=== PATIENT | male | born 1975 | race Two or more races ===

== ENCOUNTER 2020-02-07 06:12 | Outpatient (REF) | payer MEDICARE, MEDICAID, SELFPAY ==
[2020-02-07 11:08] LABS: MANUAL DIFF FLAG NO
[2020-02-07 11:21] LABS: Basophils Absolute Auto 0.1 X10*3/uL (0.0-0.2); Basophils Percent Auto 0.7 % (0-2); Eosinophils Absolute Auto 0.5 X10*3/uL (0.0-0.4); Eosinophils Percent Auto 6.7 % (0-4); Hemoglobin 15.1 g/dl (14.0-18.0); Imm Gran Abs Auto 0.01 X10*3/uL (0.00-0.03); Imm Gran Pct Auto 0.1 % (0.0-0.4); Lymphocytes Absolute Auto 3.3 X10*3/uL (1.2-4.9); Lymphocytes Percent Auto 46.9 % (20-40); Mean Corpuscular HGB Conc 33.6 g/dl (31.0-36.0); Mean Corpuscular Hemoglobin 29.5 pg (27.0-33.0); Mean Corpuscular Volume 88.1 fL (80-98); Mean Platelet Volume 13.2 fL (9.4-12.4); Monocytes Absolute Auto 0.7 X10*3/uL (0.1-1.2); Monocytes Percent Auto 9.5 % (2-11); Neutrophils Absolute Auto 2.5 X10*3/uL (2.0-8.3); Neutrophils Percent Auto 36.1 % (45-73); Platelet Count 154 X10*3/uL (160-400); Red Blood Count 5.11 X10*6/uL (4.60-5.80)
[2020-02-07 11:45] LABS: Anion Gap 13 (12-20); Blood Urea Nitrogen 14 mg/dL (9-16); Calcium 8.6 mg/dL (8.4-10.2); Carbon Dioxide 27 mmol/L (22-29); Chloride 105 mmol/L (96-108); Cholesterol 190 mg/dL; Estimated Glomerular Filt Rate > 60; Glucose Fasting 98 mg/dL (60-99); HDL Cholesterol 38 mg/dL; LDL Cholesterol Calculated 132 mg/dl; Potassium 4.3 mmol/l (3.3-5.1); Sodium 141 mmol/L (135-145); Triglycerides 100 mg/dL
[2020-02-07 11:58] LABS: Ferritin 390 ng/mL (20-250)
== END 2020-02-07 06:13 | disposition home or self-care (01) ==
LOC: HO.HMGCLDS 06:12
PROVIDERS: PCP Internal Medicine; Visit Provider Internal Medicine
DX: K21.9 Gastro-esophageal reflux disease without esophagitis (principal); I10 Essential (primary) hypertension; G47.9 Sleep disorder, unspecified; F41.1 Generalized anxiety disorder; R79.89 Other specified abnormal findings of blood chemistry
CPT/HCPCS: 36415; 80048; 80061; 82728; 85025

== ENCOUNTER 2020-09-08 08:07 | Outpatient (REF) | payer OTHER, MEDICARE, MEDICAID, SELFPAY | END 2020-09-08 08:08 | disposition home or self-care (01) | LOC: HO.HOSX 08:07 | PROVIDERS: Visit Provider Physician Assistant | DX: Z13.89 Encounter for screening for other disorder (principal) ==

== ENCOUNTER 2020-11-14 12:35 | Outpatient (REF) | payer OTHER, SELFPAY ==
[2020-11-14 13:44] LABS: Alanine Aminotransferase 53 U/L (0-40); Albumin Level 4.2 g/dL (3.5-5.0); Alkaline Phosphatase 62 U/L (39-117); Anion Gap 12 (12-20); Aspartate Amino Transferase 44 U/L (5-37); Bilirubin Total 1.1 mg/dL (0.0-1.0); Blood Urea Nitrogen 15 mg/dL (9-16); Calcium 9.3 mg/dL (8.4-10.2); Carbon Dioxide 24 mmol/L (22-29); Chloride 107 mmol/L (96-108); Estimated Glomerular Filt Rate > 60; Glucose Random 98 mg/dL (60-115); Potassium 4.2 mmol/L (3.3-5.1); Sodium 139 mmol/L (135-145); Total Protein 7.6 g/dL (6.5-8.0)
[2020-11-14 14:05] LABS: Ferritin 365 ng/mL (20-250)
== END 2020-11-14 12:36 | disposition home or self-care (01) ==
LOC: HO.HMGCLDS 12:35
PROVIDERS: PCP Internal Medicine; Visit Provider Internal Medicine
DX: Z00.00 Encounter for general adult medical examination without abnormal findings (principal); G47.9 Sleep disorder, unspecified; F41.1 Generalized anxiety disorder; I10 Essential (primary) hypertension; K21.9 Gastro-esophageal reflux disease without esophagitis; R79.89 Other specified abnormal findings of blood chemistry
CPT/HCPCS: 36415; 80053; 82728

== ENCOUNTER 2020-12-16 09:04 | Outpatient (REF) | payer OTHER, SELFPAY ==
--- NOTE | ~2020-12-16 | US_ITS ---
EXAMINATION: US ABDOMEN COMPLETE CLINICAL INFORMATION: Thrombocytopenia. Elevated liver function tests. COMPARISON: None TECHNIQUE: Real-time imaging of the abdominal viscera. FINDINGS: PANCREAS: Normal. ABDOMINAL AORTA: The proximal, mid, and distal segments are normal in caliber. INFERIOR VENA CAVA: Visualized portions are normal. LIVER: Mild hepatomegaly. The liver contour is normal. Increased hepatic parenchymal echogenicity. Focal fatty sparing adjacent to the gallbladder. No focal hepatic lesion. There is no intrahepatic biliary duct dilatation seen. GALLBLADDER: Normal. The gallbladder is physiologically distended without evidence of stones, sludge, polyps, wall thickening or pericholecystic fluid. COMMON BILE DUCT: Normal in caliber measuring 0.5 cm in diameter. RIGHT KIDNEY: Upper pole, ovoid echogenic focus measuring up to 1.2 x 0.8 x 1.3 cm with increased through transmission, likely representing an angiomyolipoma. No hydronephrosis or renal calculi. The kidney measures 12.0 cm in maximum dimension. LEFT KIDNEY: Normal. No hydronephrosis. No renal calculi or focal parenchymal lesions. The kidney measures 11.4 cm in maximum dimension. SPLEEN: Normal. The spleen measures 11.1 cm in maximum dimension. FREE FLUID: None. US/US abdomen complete IMPRESSION: 1. Mild hepatomegaly. Hepatic steatosis. Focal fatty sparing adjacent to the gallbladder fossa. 2. 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
== END 2020-12-16 09:05 | disposition home or self-care (01) ==
LOC: HO.HMGCX 09:04
PROVIDERS: PCP Internal Medicine; Visit Provider Internal Medicine
DX: D69.6 Thrombocytopenia, unspecified (principal); R79.89 Other specified abnormal findings of blood chemistry
CPT/HCPCS: 76700

== ENCOUNTER 2021-02-11 10:01 | Outpatient (REF) | payer OTHER, SELFPAY | END 2021-02-11 10:02 | disposition home or self-care (01) | LOC: HO.BBR 10:01 | PROVIDERS: Visit Provider Internal Medicine Medical Oncology | DX: R79.89 Other specified abnormal findings of blood chemistry (principal) | CPT/HCPCS: 85014; 85018; 99195 ==

== ENCOUNTER 2021-05-17 07:57 | Outpatient (REF) | payer OTHER, SELFPAY ==
[2021-05-17 09:00] LABS: Ferritin 142 ng/mL (20-250)
== END 2021-05-17 07:58 | disposition home or self-care (01) ==
LOC: HO.BBR 07:57
PROVIDERS: Visit Provider Internal Medicine
DX: E83.110 Hereditary hemochromatosis (principal)
CPT/HCPCS: 36415; 82728; 85014; 85018; 99195

== ENCOUNTER 2021-09-02 08:06 | Outpatient (REF) | payer OTHER, SELFPAY ==
[2021-09-02 09:53] LABS: Ferritin 144 ng/mL (20-250)
== END 2021-09-02 08:07 | disposition home or self-care (01) ==
LOC: HO.BBR 08:06
PROVIDERS: Visit Provider Internal Medicine
DX: E83.110 Hereditary hemochromatosis (principal); E83.19 Other disorders of iron metabolism
CPT/HCPCS: 36415; 82728; 85018; 99195

== ENCOUNTER 2022-04-30 10:55 | Outpatient (REF) | payer OTHER, SELFPAY ==
[2022-04-30 13:17] LABS: MANUAL DIFF FLAG NO
[2022-04-30 13:23] LABS: Basophils Percent Auto 0.7 % (0-2); Eosinophils Absolute Auto 0.4 X10*3/uL (0.0-0.4); Eosinophils Percent Auto 6.5 % (0-4); Hematocrit 46.2 % (42.0-52.0); Hemoglobin 15.4 g/dl (14.0-18.0); Imm Gran Abs Auto 0.01 X10*3/uL (0.00-0.03); Imm Gran Pct Auto 0.2 % (0.0-0.4); Lymphocytes Absolute Auto 2.5 X10*3/uL (1.2-4.9); Lymphocytes Percent Auto 45.2 % (20-40); Mean Corpuscular HGB Conc 33.3 g/dl (31.0-36.0); Mean Corpuscular Hemoglobin 28.1 pg (27.0-33.0); Mean Corpuscular Volume 84.2 fL (80.0-98.0); Mean Platelet Volume 12.1 fL (9.4-12.4); Monocytes Absolute Auto 0.5 X10*3/uL (0.1-1.2); Monocytes Percent Auto 9.8 % (2-11); Neutrophils Absolute Auto 2.1 x10*3/uL (2.0-8.3); Neutrophils Percent Auto 37.6 % (45-73); Platelet Count 196 X10*3/uL (160-400); Red Blood Count 5.49 X10*6/uL (4.60-5.80); Red Cell Distribution Width 13.6 % (11.0-16.0); White Blood Count 5.5 X10*3/uL (4.8-10.8)
[2022-04-30 13:34] LABS: Alanine Aminotransferase 38 U/L (0-40); Albumin Level 4.1 g/dL (3.5-5.0); Alkaline Phosphatase 62 U/L (39-117); Anion Gap 12 (12-20); Aspartate Amino Transferase 28 U/L (5-37); Bilirubin Total 0.8 mg/dL (0.0-1.0); Blood Urea Nitrogen 16 mg/dL (9-16); Calcium 9.1 mg/dL (8.4-10.2); Carbon Dioxide 24 mmol/L (22-29); Chloride 107 mmol/L (96-108); Estimated Glomerular Filt Rate > 60; Glucose Random 96 mg/dL (60-115); Sodium 139 mmol/L (135-145); Total Protein 7.2 g/dL (6.5-8.0)
[2022-05-02 08:43] LABS: LDL Cholesterol Direct 147 mg/dL (<100)
== END 2022-04-30 10:56 | disposition home or self-care (01) ==
LOC: HO.HMGCLDS 10:55
PROVIDERS: PCP Internal Medicine; Visit Provider Internal Medicine
DX: F41.1 Generalized anxiety disorder (principal); G47.9 Sleep disorder, unspecified; K21.9 Gastro-esophageal reflux disease without esophagitis; I10 Essential (primary) hypertension
CPT/HCPCS: 36415; 80053; 83721; 85025

== ENCOUNTER 2023-01-27 15:40 | Outpatient (AMB) | payer OTHER, SELFPAY ==
--- NOTE | 2023-01-27 15:42 | MHC.PC.OV ---
Vital Signs 01/27/23 15:47 Height 6 ft 2 in Weight 237 lb 4 oz BMI 30.5 BP 140/92 H Blood Pressure Location Lt brachial Position Sitting Pulse 82 Pulse Source Pulse Oximeter Pulse Oximetry (%) 96 Oxygen Delivery Method Room Air Intake Visit Reasons: 3 month follow up Allergies aspirin Allergy (Unknown, Verified 01/27/23 15:42) anaphylaxis Medication List - Last Reconciled 01/27/23 by Estefania Moon MD atenolol 25 mg PO DAILY 90 days cetirizine (Zyrtec) 10 mg PO DAILY 90 days fluticasone propionate 50 mcg/actuation (Allergy Relief (fluticasone)) 1 spray intranasal DAILY 30 days omeprazole 20 mg PO DAILY 90 days sertraline 100 mg PO DAILY 90 days temazepam 15 mg PO BEDTIME 30 days Tobacco use date assessed: 01/27/23 Dental Screening Dental Screen Date: 01/27/23 Did you have a dental visit in the last 12 months?: No Did you have a dental problem in the last 6 months where you did not have access to dental care?: No Was dental information given to patient?: No HPI 3 month follow up HPI Details Patient is 47-year-old gentleman came in for his regular follow-up appointment 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 He has appointment in [place] with call or contact centre coach for evaluation He is also hearing impaired and wears hearing aid bilateral Allergies: Patient is on cetirizine and Flonase nasal spray which is controlling his allergies. Hypertension: Blood pressure is elevated today at 140/92 patient is on atenolol 25 mg he says that he had some salty food yesterday it could be because of that Last time his blood pressure was 126/66 we will continue to monitor meanwhile I recommend that he should avoid salty food Taking temazepam at night as a sleep aid only if needed, script sent more than 30 tablets GERD is stable with omeprazole 20 mg. Anxiety and depression: is stable with sertraline 100 mg daily. Due for labs, order placed to be done fasting last set of lab was in April [facility] Medical History Pigmentary retinal dystrophy Elevated ferritin LFT elevation Anxiety, generalized Difficulty sleeping Chronic GERD Hypertension, essential Surgical History H/O hand surgery H/O eye surgery No pertinent past surgical history Family History Mother Diabetes Heart abnormality Maternal Grandfather Diabetes Heart abnormality Social History Household Members: Spouse Housing: House Alcohol intake: current Alcohol intake frequency: a few times a month Alcohol type: wine Patient Tobacco Use Status: Never used Tobacco e-Cigarette/Vaping Use: Never Used Second Hand Smoke Exposure: No service: No Current occupational status: disabled Cognitive needs: No Hearing needs: No Vision needs: No Questionnaire PHQ-9 Over the last 2 weeks, how often have you been bothered by any of the following problems? 1. Little interest or pleasure in doing things: several days 2. Feeling down, depressed, or hopeless: several days 3. Trouble falling or staying asleep, or sleeping too much: more than half the days 4. Feeling tired or having little energy: more than half the days 5. Poor appetite or overeating: several days 6. Feeling bad about yourself - or that you are a failure or have let yourself or your family down: several days 7. Trouble concentrating on things, such as reading the newspaper or watching television: several days 8. Moving or speaking so slowly that other people could have noticed. Or the opposite - being so fidgety or restless that you have been moving around a lot more than usual: several days 9. Thoughts that you would be better off or of hurting yourself in some way: several days Total score: 11 Depression Screening Interpretation: Positive Depression Screening Follow-up: Existing condition and In treatment Depression Screening Done: Yes 39557 - PHQ-9 Billing: Yes Source: Developed by Drs. Jake Ryan, Sharonda Villagomez, Chance Prasad and colleagues, with an educational neel from [employer]. Thrive Questionnaire Date Thrive assessed: 04/26/22 AUDIT C Alcohol Use Questionnaire (AUDIT-C) 1. How often do you have a drink containing alcohol?: Never 3. How often do you have six or more drinks on one occasion?: Never Total Score: 0 Score Reviewed/Action Taken: Yes PRESLEY-7 AMB Questionnaire PRESLEY-7 Date PRESLEY - 7 assessed: 01/27/23 Feeling nervous, anxious, or on edge: 1 = Several days Not being able to stop or control worryin = Several days Worrying too much about different things: 1 = Several days Trouble relaxin = Several days Being so restless that it is hard to sit still: 1 = Several days Becoming easily annoyed or irritable: 1 = Several days Feeling afraid as if something awful might happen: 1 = Several days Total PRESLEY-7 score (0-4 normal; 5-9 mild; 10-14 moderate; 15-21 severe): 7 Source: Developed by Drs. Jake Ryan, Sharonda Villagomez, Chance Prasad and colleagues, with an educational neel from [employer]. PRESLEY-7 Assessment Billing PRESLEY-7 Assessment Tool: PRESLEY-7 Assessment 95007 Review of Systems Const Denies chills and Denies fever(s) ENT Denies epistaxis and Denies nasal discharge Card Denies chest pain Resp Denies chest congestion, Denies cough and Denies hemoptysis GI Denies diarrhea and Denies nausea Skin/Breast Denies rash Neuro Reports no additional complaints Psych Reports no additional complaints Endo Reports no additional complaints Physical exam (Primary Care) Vital Signs: Last Vital Signs Pulse 82 01/27/23 15:47 BP 140/92 H 01/27/23 15:47 Pulse Ox 96 01/27/23 15:47 Oxygen Delivery Method Room Air 01/27/23 15:47 BMI result Body Mass Index 30.5 Tobacco/Smoking Status: Tobacco use Status Tobacco use date assessed 01/27/23 01/27/23 15:48 Patient Tobacco Use Status Never used Tobacco 01/27/23 15:44 e-Cigarette/Vaping Use Never Used 01/27/23 15:44 Depression Screening Interpretation: Positive Depression Screening Follow-up: Existing condition and In treatment Thrive Assessment: Date of Thrive Assessment Date Thrive assessed 04/26/22 01/27/23 15:44 Const General: cooperative, comfortable and no acute distress Orientation/consciousness: patient oriented x3 HENMT Head: Yes normocephalic Neck Neck: Yes supple Resp Effort & Inspection: normal respiratory effort, no cough and no stridor Cardio Rhythm: regular rhythm Heart sounds: S1 normal heart sound present and S2 normal heart sound present Skin General skin exam: turgor normal Neuro General: patient oriented x3, tone normal and moves all extremities Extrem Right lower extremity: no edema Left lower extremity: no edema Assessment and Plan Assessment & Plan (1) Hypertension, essential: Code(s): I10 - Essential (primary) hypertension (2) Chronic GERD: Code(s): K21.9 - Gastro-esophageal reflux disease without esophagitis (3) Difficulty sleeping: Code(s): G47.9 - Sleep disorder, unspecified (4) Anxiety, generalized: Code(s): F41.1 - Generalized anxiety disorder (5) LFT elevation: Code(s): R79.89 - Other specified abnormal findings of blood chemistry (6) Thrombocytopenia: Code(s): D69.6 - Thrombocytopenia, unspecified (7) Major depression, recurrent: Code(s): F33.9 - Major depressive disorder, recurrent, unspecified Qualifiers: Active/Remission status: currently active Major depression episode severity: mild Qualified Code(s): F33.0 - Major depressive disorder, recurrent, mild (8) Hearing difficulty: Code(s): H91.90 - Unspecified hearing loss, unspecified ear Qualifiers: Laterality: bilateral Qualified Code(s): H91.93 - Unspecified hearing loss, bilateral (9) Allergic rhinitis: Code(s): J30.9 - Allergic rhinitis, unspecified Qualifiers: Allergic rhinitis trigger: other Allergic rhinitis seasonality: non-seasonal Qualified Code(s): J30.89 - Other allergic rhinitis (10) Legally blind: Code(s): H54.8 - Legal blindness, as defined in [place] (11) Pigmentary retinal dystrophy: Code(s): H35.52 - Pigmentary retinal dystrophy (12) Elevated ferritin: Code(s): R79.89 - Other specified abnormal findings of blood chemistry Plan Patient is 47-year-old gentleman came in for his regular follow-up appointment 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 He has appointment in [place] with call or contact centre coach for evaluation He is also hearing impaired and wears hearing aid bilateral Allergies: Patient is on cetirizine and Flonase nasal spray which is controlling his allergies. Hypertension: Blood pressure is elevated today at 140/92 patient is on atenolol 25 mg he says that he had some salty food yesterday it could be because of that Last time his blood pressure was 126/66 we will continue to monitor meanwhile I recommend that he should avoid salty food Taking temazepam at night as a sleep aid only if needed, script sent more than 30 tablets GERD is stable with omeprazole 20 mg. Anxiety and depression: is stable with sertraline 100 mg daily. Due for labs, order placed to be done fasting last set of lab was in April Orders: Orders Comprehensive Murphy. Panel Fast Today D69.6 - Thrombocytopenia, unspecified, F33.9 - Major depressive disorder, recurrent, unspecified, F41.1 - Generalized anxiety disorder, G47.9 - Sleep disorder, unspecified, H35.52 - Pigmentary retinal dystrophy, H54.8 - Legal blindness, as defined in [place], H91.90 - Unspecified hearing loss, unspecified ear, I10 - Essential (primary) hypertension, J30.9 - Allergic rhinitis, unspecified, K21.9 - Gastro-esophageal reflux disease without esophagitis, R79.89 - Other specified abnormal findings of blood chemistry Vitamin B12 Today D69.6 - Thrombocytopenia, unspecified, F33.9 - Major depressive disorder, recurrent, unspecified, F41.1 - Generalized anxiety disorder, G47.9 - Sleep disorder, unspecified, H35.52 - Pigmentary retinal dystrophy, H54.8 - Legal blindness, as defined in [place], H91.90 - Unspecified hearing loss, unspecified ear, I10 - Essential (primary) hypertension, J30.9 - Allergic rhinitis, unspecified, K21.9 - Gastro-esophageal reflux disease without esophagitis, R79.89 - Other specified abnormal findings of blood chemistry Ferritin Today R79.89 - Other specified abnormal findings of blood chemistry Complete Blood Count Auto Diff Today D69.6 - Thrombocytopenia, unspecified, F33.9 - Major depressive disorder, recurrent, unspecified, F41.1 - Generalized anxiety disorder, G47.9 - Sleep disorder, unspecified, H35.52 - Pigmentary retinal dystrophy, H54.8 - Legal blindness, as defined in [place], H91.90 - Unspecified hearing loss, unspecified ear, I10 - Essential (primary) hypertension, J30.9 - Allergic rhinitis, unspecified, K21.9 - Gastro-esophageal reflux disease without esophagitis, R79.89 - Other specified abnormal findings of blood chemistry Lipid Panel Today D69.6 - Thrombocytopenia, unspecified, F33.9 - Major depressive disorder, recurrent, unspecified, F41.1 - Generalized anxiety disorder, G47.9 - Sleep disorder, unspecified, H35.52 - Pigmentary retinal dystrophy, H54.8 - Legal blindness, as defined in [place], H91.90 - Unspecified hearing loss, unspecified ear, I10 - Essential (primary) hypertension, J30.9 - Allergic rhinitis, unspecified, K21.9 - Gastro-esophageal reflux disease without esophagitis, R79.89 - Other specified abnormal findings of blood chemistry Vitamin D 25-OH (D2 and D3) Today D69.6 - Thrombocytopenia, unspecified, F33.9 - Major depressive disorder, recurrent, unspecified, F41.1 - Generalized anxiety disorder, G47.9 - Sleep disorder, unspecified, H35.52 - Pigmentary retinal dystrophy, H54.8 - Legal blindness, as defined in [place], H91.90 - Unspecified hearing loss, unspecified ear, I10 - Essential (primary) hypertension, J30.9 - Allergic rhinitis, unspecified, K21.9 - Gastro-esophageal reflux disease without esophagitis, R79.89 - Other specified abnormal findings of blood chemistry Medications: Refilled temazepam 15 mg PO BEDTIME 30 days 30 caps 0RF sertraline 100 mg PO DAILY 90 days 90 tabs 0RF omeprazole 20 mg PO DAILY 90 days 90 caps 0RF fluticasone propionate 50 mcg/actuation (Allergy Relief (fluticasone)) administer into each nostril 1 spray intranasal DAILY 30 days 1 mL 0RF R09.81 - Nasal congestion cetirizine (Zyrtec) 10 mg PO DAILY 90 days 90 tabs 1RF atenolol 25 mg PO DAILY 90 days 90 tabs 0RF Coding Level of Care Code Est Pt Level 4 (46686) Diagnoses Hypertension, essential I10 Chronic GERD K21.9 Difficulty sleeping G47.9 Anxiety, generalized F41.1 LFT elevation R79.89 Thrombocytopenia D69.6 Mild episode of recurrent major depressive disorder F33.0 Active/Remission status: currently active Major depression episode severity: mild Hearing difficulty of both ears H91.93 Laterality: bilateral Non-seasonal allergic rhinitis due to other allergic trigger J30.89 Allergic rhinitis trigger: other Allergic rhinitis seasonality: non-seasonal Legally blind H54.8 Pigmentary retinal dystrophy H35.52 Elevated ferritin R79.89 Additional Codes PRESLEY-7 Assessment Billing - PRESLEY-7 Assessment Tool: PRESLEY-7 Assessment [id number] ([id number])
[2023-01-27 15:47] VITALS: BP 140/92; PULSE 82; O2SAT 96; BMI 30.5
== END 2023-01-27 16:49 | disposition home or self-care (01) ==
PROVIDERS: PCP Internal Medicine; Visit Provider Internal Medicine
DX: I10 Essential (primary) hypertension (principal); D69.6 Thrombocytopenia, unspecified; F33.0 Major depressive disorder, recurrent, mild; K21.9 Gastro-esophageal reflux disease without esophagitis; G47.9 Sleep disorder, unspecified; F41.1 Generalized anxiety disorder; R79.89 Other specified abnormal findings of blood chemistry; H91.93 Unspecified hearing loss, bilateral; J30.89 Other allergic rhinitis; H54.8 Legal blindness, as defined in USA; H35.52 Pigmentary retinal dystrophy
CPT/HCPCS: 96127; 99214

== ENCOUNTER 2023-02-23 09:58 | Outpatient (REF) | payer OTHER, SELFPAY ==
[2023-02-23 13:13] LABS: MANUAL DIFF FLAG NO
[2023-02-23 13:25] LABS: Basophils Percent Auto 0.8 % (0-2); Eosinophils Absolute Auto 0.3 X10*3/uL (0.0-0.4); Eosinophils Percent Auto 5.9 % (0-4); Hematocrit 46.1 % (42.0-52.0); Hemoglobin 15.4 g/dl (14.0-18.0); Imm Gran Abs Auto 0.01 X10*3/uL (0.00-0.03); Imm Gran Pct Auto 0.2 % (0.0-0.4); Lymphocytes Absolute Auto 2.2 X10*3/uL (1.2-4.9); Lymphocytes Percent Auto 46.5 % (20-40); Mean Corpuscular HGB Conc 33.4 g/dl (31.0-36.0); Mean Corpuscular Hemoglobin 28.6 pg (27.0-33.0); Mean Corpuscular Volume 85.5 fL (80.0-98.0); Mean Platelet Volume 12.9 fL (9.4-12.4); Monocytes Absolute Auto 0.6 X10*3/uL (0.1-1.2); Monocytes Percent Auto 12.4 % (2-11); Neutrophils Absolute Auto 1.6 x10*3/uL (2.0-8.3); Neutrophils Percent Auto 34.2 % (45-73); Platelet Count 164 X10*3/uL (160-400); Red Blood Count 5.39 X10*6/uL (4.60-5.80); White Blood Count 4.8 X10*3/uL (4.8-10.8)
[2023-02-23 13:53] LABS: Alanine Aminotransferase 36 U/L (0-40); Albumin Level 4.3 g/dL (3.5-5.0); Alkaline Phosphatase 65 U/L (39-117); Anion Gap 10 (12-20); Aspartate Amino Transferase 32 U/L (5-37); Blood Urea Nitrogen 16 mg/dL (9-16); Calcium 9.3 mg/dL (8.4-10.2); Carbon Dioxide 28 mmol/L (22-29); Chloride 106 mmol/L (96-108); Cholesterol 193 mg/dL (<200); Estimated Glomerular Filt Rate > 60; Glucose Fasting 100 mg/dL (60-99); Glucose Random 100 mg/dL (60-115); HDL Cholesterol 39 mg/dL (>40); LDL Cholesterol Calculated 132 mg/dL (<100); Potassium 3.8 mmol/L (3.3-5.1); Sodium 140 mmol/L (135-145); Total Protein 7.8 g/dL (6.5-8.0); Triglycerides 112 mg/dL (<150)
[2023-02-23 13:58] LABS: Ferritin 171 ng/mL (20-250)
[2023-02-23 14:06] LABS: Vitamin B12 641 pg/mL (200-900)
[2023-02-28 15:33] LABS: Vitamin D 25-OH, D2 <4 ng/mL; Vitamin D 25-OH, D3 16 ng/mL; Vitamin D 25-OH, Total 16 ng/mL (30-100)
== END 2023-02-23 09:59 | disposition home or self-care (01) ==
LOC: HO.HMGCLDS 09:58
PROVIDERS: PCP Internal Medicine; Visit Provider Internal Medicine
DX: I10 Essential (primary) hypertension (principal); K21.9 Gastro-esophageal reflux disease without esophagitis; G47.9 Sleep disorder, unspecified; F41.1 Generalized anxiety disorder; R79.89 Other specified abnormal findings of blood chemistry; D69.6 Thrombocytopenia, unspecified; F33.9 Major depressive disorder, recurrent, unspecified; H91.90 Unspecified hearing loss, unspecified ear; J30.9 Allergic rhinitis, unspecified; H54.8 Legal blindness, as defined in USA; H35.52 Pigmentary retinal dystrophy
CPT/HCPCS: 36415; 80053; 80061; 82306; 82607; 82728; 85025

== ENCOUNTER 2023-06-21 15:01 | Outpatient (AMB) | payer OTHER, SELFPAY ==
--- NOTE | 2023-06-21 15:06 | A.OFFPC_ITS ---
Vital Signs 06/21/23 15:09 Height 6 ft 2 in Weight 243 lb BMI 31.2 BP 136/94 H Blood Pressure Location Rt brachial Position Sitting Pulse 92 Pulse Source Pulse Oximeter Pulse Oximetry (%) 98 Oxygen Delivery Method Room Air Intake Visit Reasons: Annual PE Allergies aspirin Allergy (Unknown, Verified 06/21/23 15:10) anaphylaxis Medication List - Last Reconciled 06/21/23 by Estefania Moon MD atenolol 25 mg PO DAILY 90 days cetirizine (Zyrtec) 10 mg PO DAILY 90 days fluticasone propionate 50 mcg/actuation (Allergy Relief (fluticasone)) 1 spray intranasal DAILY 30 days omeprazole 20 mg PO DAILY 90 days sertraline 100 mg PO DAILY 90 days temazepam 15 mg PO BEDTIME 30 days Tobacco use date assessed: 06/21/23 Dental Screening Dental Screen Date: 06/21/23 Did you have a dental visit in the last 12 months?: No Did you have a dental problem in the last 6 months where you did not have access to dental care?: No Was dental information given to patient?: Patient has dentist HPI Annual PE HPI Details Patient is a 47-year-old came in today for physical examination Patient is requesting handicap placard, forms filled Labs were done of last year, reviewed again Medication list reviewed Blood pressure is elevated , heart rate is elevated as well at 92 Currently he is on atenolol 25 mg I am increasing it to 50 mg Temazepam refill sent for next 90 days other appropriate refills provided Due for colonoscopy, referral placed Physical is a 1 follow-up 3 months medication refill Labs are needed before next visit ON LICENSE OF [facility] Medical History Pigmentary retinal dystrophy Elevated ferritin LFT elevation Anxiety, generalized Difficulty sleeping Chronic GERD Hypertension, essential Surgical History H/O hand surgery H/O eye surgery No pertinent past surgical history Family History Mother Diabetes Heart abnormality Maternal Grandfather Diabetes Heart abnormality Social History Household Members: Spouse Housing: House Alcohol intake: current Alcohol intake frequency: a few times a month Alcohol type: wine Patient Tobacco Use Status: Never used Tobacco e-Cigarette/Vaping Use: Never Used Second Hand Smoke Exposure: No service: No Current occupational status: disabled Cognitive needs: No Hearing needs: No Vision needs: No Questionnaire Thrive Questionnaire Date Thrive assessed: 04/26/22 PRESLEY-7 AMB Questionnaire PRESLEY-7 Date PRESLEY - 7 assessed: 01/27/23 Source: Developed by Drs. Jake Ryan, Sharonda Villagomez, Chance Prasad and colleagues, with an educational neel from [employer]. Review of Systems Const Denies chills, Denies fever(s) and Denies headache(s) ENT Denies headache(s), Denies nasal discharge, Denies nasal obstruction, Denies odynophagia and Denies sinus pain Card Denies chest pain at rest and Denies chest pain with activity Resp Denies cough and Denies hemoptysis GI Denies diarrhea, Denies odynophagia, Denies vomiting and Denies hematemesis Reports as per HPI Skin/Breast Reports as per HPI Neuro Denies Neuro-related abnormal movements, Denies Abnormal speech present, Denies headache(s) and Denies Sensory deficit (Neuro) Psych Denies mood swings and Denies paranoia Endo Reports as per HPI Ritesh/Lymph Reports as per HPI Aller/Immun Reports as per HPI Physical exam (Primary Care) Vital Signs: Last Vital Signs Pulse 92 06/21/23 15:09 BP 136/94 H 06/21/23 15:09 Pulse Ox 98 06/21/23 15:09 Oxygen Delivery Method Room Air 06/21/23 15:09 BMI result Body Mass Index 31.2 Tobacco/Smoking Status: Tobacco use Status Tobacco use date assessed 06/21/23 06/21/23 15:12 Patient Tobacco Use Status Never used Tobacco 06/21/23 15:08 e-Cigarette/Vaping Use Never Used 06/21/23 15:08 Thrive Assessment: Date of Thrive Assessment Date Thrive assessed 04/26/22 06/21/23 15:08 Const General: cooperative, comfortable and no acute distress Orientation/consciousness: patient oriented x3 HENMT Head: Yes normocephalic and Yes atraumatic Neck Neck: Yes supple and No lymphadenopathy Thyroid: Thyroid normal Lymphatic: no lymphadenopathy noted Resp Effort & Inspection: normal respiratory effort and able to speak in complete sentences Auscultation: clear to auscultation bilaterally Cardio Heart sounds: S1 normal heart sound present and S2 normal heart sound present GI Palpation (GI): Soft to palpation and nontender Auscultation: normal bowel sounds General: Yes no CVA tenderness Back/Spine/Pelvis Back: no CVA tenderness Skin General skin exam: elasticity normal and turgor normal Neuro General: patient oriented x3 and gait normal Speech: No Abnormal speech present Sensory Exam: No Sensory deficit (Neuro) Extrem General: Yes normal exam except as noted and No edema Assessment and Plan Assessment & Plan (1) Encounter for general adult medical examination with abnormal findings: Code(s): Z00.01 - Encounter for general adult medical examination with abnormal findings (2) Hypertension, essential: Code(s): I10 - Essential (primary) hypertension (3) Chronic GERD: Code(s): K21.9 - Gastro-esophageal reflux disease without esophagitis (4) Difficulty sleeping: Code(s): G47.9 - Sleep disorder, unspecified (5) Anxiety, generalized: Code(s): F41.1 - Generalized anxiety disorder (6) LFT elevation: Code(s): R79.89 - Other specified abnormal findings of blood chemistry (7) Elevated ferritin: Code(s): R79.89 - Other specified abnormal findings of blood chemistry (8) Thrombocytopenia: Code(s): D69.6 - Thrombocytopenia, unspecified (9) Pigmentary retinal dystrophy: Code(s): H35.52 - Pigmentary retinal dystrophy (10) Major depression, recurrent: Code(s): F33.9 - Major depressive disorder, recurrent, unspecified Qualifiers: Active/Remission status: currently active Major depression episode severity: mild Qualified Code(s): F33.0 - Major depressive disorder, recurrent, mild (11) Hearing difficulty: Code(s): H91.90 - Unspecified hearing loss, unspecified ear Qualifiers: Laterality: bilateral Qualified Code(s): H91.93 - Unspecified hearing loss, bilateral (12) Allergic rhinitis: Code(s): J30.9 - Allergic rhinitis, unspecified Qualifiers: Allergic rhinitis seasonality: non-seasonal Allergic rhinitis trigger: other Qualified Code(s): J30.89 - Other allergic rhinitis (13) Legally blind: Code(s): H54.8 - Legal blindness, as defined in [place] Plan Patient is a 47-year-old came in today for physical examination Patient is requesting handicap placard, forms filled Labs were done of last year, reviewed again Medication list reviewed Blood pressure is elevated , heart rate is elevated as well at 92 Currently he is on atenolol 25 mg I am increasing it to 50 mg Temazepam refill sent for next 90 days other appropriate refills provided For elevated ferritin level patient has seen Hematology already Due for colonoscopy, referral placed Physical is a 1 follow-up 3 months medication refill Labs are needed before next visit Orders: Orders Comprehensive Met. Panel Today D69.6 - Thrombocytopenia, unspecified, F33.9 - Major depressive disorder, recurrent, unspecified, F41.1 - Generalized anxiety disorder, G47.9 - Sleep disorder, unspecified, H35.52 - Pigmentary retinal dystrophy, H54.8 - Legal blindness, as defined in [place], H91.90 - Unspecified hearing loss, unspecified ear, I10 - Essential (primary) hypertension, J30.9 - Allergic rhinitis, unspecified, K21.9 - Gastro-esophageal reflux disease without esophagitis, R79.89 - Other specified abnormal findings of blood chemistry LDL Cholesterol Direct Today D69.6 - Thrombocytopenia, unspecified, F33.9 - Major depressive disorder, recurrent, unspecified, F41.1 - Generalized anxiety disorder, G47.9 - Sleep disorder, unspecified, H35.52 - Pigmentary retinal dystrophy, H54.8 - Legal blindness, as defined in [place], H91.90 - Unspecified hearing loss, unspecified ear, I10 - Essential (primary) hypertension, J30.9 - Allergic rhinitis, unspecified, K21.9 - Gastro-esophageal reflux disease without esophagitis, R79.89 - Other specified abnormal findings of blood chemistry Complete Blood Count Auto Diff Today D69.6 - Thrombocytopenia, unspecified, F33.9 - Major depressive disorder, recurrent, unspecified, F41.1 - Generalized anxiety disorder, G47.9 - Sleep disorder, unspecified, H35.52 - Pigmentary retinal dystrophy, H54.8 - Legal blindness, as defined in [place], H91.90 - Unspecified hearing loss, unspecified ear, I10 - Essential (primary) hypertension, J30.9 - Allergic rhinitis, unspecified, K21.9 - Gastro-esophageal reflux disease without esophagitis, R79.89 - Other specified abnormal findings of blood chemistry Medications: Changed From atenolol 25 mg PO DAILY 90 days 90 tabs 0RF To atenolol 50 mg PO DAILY 90 tabs 0RF 90 days From temazepam 15 mg PO BEDTIME 30 days 30 caps 0RF To temazepam 15 mg PO BEDTIME 90 caps 0RF 90 days Refilled sertraline 100 mg PO DAILY 90 tabs 0RF 90 days omeprazole 20 mg PO DAILY 90 caps 0RF 90 days fluticasone propionate 50 mcg/actuation (Allergy Relief (fluticasone)) administer into each nostril 1 spray intranasal DAILY 1 mL 0RF 30 days R09.81 - Nasal congestion Coding Level of Care Code Est Pt Prev Care 40-64y(82465) Diagnoses Encounter for general adult medical examination with abnormal findings Z00.01 Hypertension, essential I10 Chronic GERD K21.9 Difficulty sleeping G47.9 Anxiety, generalized F41.1 LFT elevation R79.89 Elevated ferritin R79.89 Thrombocytopenia D69.6 Pigmentary retinal dystrophy H35.52 Mild episode of recurrent major depressive disorder F33.0 Active/Remission status: currently active Major depression episode severity: mild Hearing difficulty of both ears H91.93 Laterality: bilateral Non-seasonal allergic rhinitis due to other allergic trigger J30.89 Allergic rhinitis seasonality: non-seasonal Allergic rhinitis trigger: other Legally blind H54.8
[2023-06-21 15:09] VITALS: BP 136/94; PULSE 92; O2SAT 98; BMI 31.2
== END 2023-06-21 15:34 | disposition home or self-care (01) ==
PROVIDERS: Visit Provider Internal Medicine
DX: Z00.00 Encounter for general adult medical examination without abnormal findings (principal); D69.6 Thrombocytopenia, unspecified; F33.0 Major depressive disorder, recurrent, mild; G47.9 Sleep disorder, unspecified; I10 Essential (primary) hypertension; K21.9 Gastro-esophageal reflux disease without esophagitis; F41.1 Generalized anxiety disorder; R79.89 Other specified abnormal findings of blood chemistry; H35.52 Pigmentary retinal dystrophy; H91.93 Unspecified hearing loss, bilateral; J30.89 Other allergic rhinitis; H54.8 Legal blindness, as defined in USA
CPT/HCPCS: 99396

== ENCOUNTER 2023-10-07 10:40 | Outpatient (AMB) | payer OTHER, SELFPAY ==
[2023-10-07 10:53] VITALS: BP 140/80; PULSE 86; TEMP 36.9; O2SAT 98; BMI 29.8
--- NOTE | 2023-10-07 10:53 | MHC.OFFWIV ---
Intake Vital Signs 10/07/23 10:53 Height 6 ft 2 in Weight 232 lb BMI 29.8 BP 140/80 H Blood Pressure Location Lt brachial Position Sitting Pulse 86 Pulse Source Pulse Oximeter Temp 98.5 F Temp Source Temporal Artery Scan Pulse Oximetry (%) 98 Oxygen Delivery Method Room Air Intake Visit Reasons: EP diarrhea since coming back from [place] Intake Note: pt is here today for diarrhea started 1 month ago Patient Tobacco Use Status: Never used Tobacco Allergies aspirin Allergy (Unknown, Verified 10/07/23 11:06) anaphylaxis Do you need a note to return to daycare/school/sports/work: No HPI EP diarrhea since coming back from [place] HPI Details Patient is a 47-year-old male who comes to the walk-in clinic complaining of persistent intermittent diarrhea for about a month, since traveling back from [place]. Initially he had respiratory symptoms also, which involved postnasal drip, nasal congestion, and cough. COVID testing was not done. He reports that he had no uncooked food while traveling, and that his last meal had been pizza, and symptoms started the same day he arrived back home. He reports no obvious sick contacts, and no other family members had similar symptoms. He gets nausea and abdominal cramping with symptoms, but no vomiting, fever or chills, dizziness or weakness, headache, respiratory symptoms, or other significant symptoms reported. He states that symptoms will improve temporarily, but then restart a few days later over the course of the month. Denies any blood or coffee grounds in the stool. [facility] Medical History Pigmentary retinal dystrophy Elevated ferritin LFT elevation Anxiety, generalized Difficulty sleeping Chronic GERD Hypertension, essential Surgical History H/O hand surgery H/O eye surgery No pertinent past surgical history Family History Mother Diabetes Heart abnormality Maternal Grandfather Diabetes Heart abnormality Social History Household Members: Spouse Housing: House Alcohol intake: current Alcohol intake frequency: a few times a month Alcohol type: wine Patient Tobacco Use Status: Never used Tobacco e-Cigarette/Vaping Use: Never Used Second Hand Smoke Exposure: No service: No Current occupational status: disabled Cognitive needs: No Hearing needs: No Vision needs: No Physical Exam Vital Signs: Last Vital Signs Temp 98.5 F 10/07/23 10:53 Pulse 86 10/07/23 10:53 BP 140/80 H 10/07/23 10:53 Pulse Ox 98 10/07/23 10:53 Oxygen Delivery Method Room Air 10/07/23 10:53 BMI result Body Mass Index 29.8 Const General: cooperative, healthy appearing, comfortable, no acute distress, alert, awake, Physically active and well groomed; No anxious, diaphoretic, ill appearing, intoxicated appearing, poor hygiene or tired appearing Nutritional Appearance: average body habitus Orientation/consciousness: oriented to person Limitations: no limitations Resp Effort & Inspection: normal respiratory effort, able to speak in complete sentences, no audible wheezes, no cough, no grunting, not labored, no nasal flaring, no retractions and symmetric chest movement Auscultation: clear to auscultation bilaterally, no crackles, no rales, no rhonchi, no wheezes, lung sounds not diminished and No rub present Cardio Palpation: normal PMI Rate: regular rate Rhythm: regular rhythm Heart sounds: S1 normal heart sound present and S2 normal heart sound present GI Palpation (GI): Soft to palpation, not firm, Tenderness to palpation present (GI) (Midepigastric area) in the epigastrum; not in the LLQ, not in the RLQ, not at McBurney's point, not suprapubicly and Rovsing's sign negative, no guarding, not rigid, No hepatosplenomegaly present, Hernia present (Umbilical, no tenderness there) and no masses Percussion: Yes normal to percussion Auscultation: normal bowel sounds Skin Other: Good color, warm and dry Neuro General: oriented to person Psych Appearance: grossly normal Mental Status: mental status grossly normal Speech and movement: Normal speech and movement present Affect: normal affect Attitude: cooperative Thought process: Normal thought process present Insight: Good insight present (Psych) Judgement: Good judgement present (Psych) Assessment & Plan Assessment & Plan (1) Travelers' diarrhea: Code(s): A09 - Infectious gastroenteritis and colitis, unspecified Plan: Patient is a 47-year-old male with apparent traveler's diarrhea (or residual viral syndrome) for about a month now since returning from a trip from [place]. COVID testing was not done, so pending flu COVID and RSV today. He trialed Imodium at home, which did not seem to alter the course of his persistent symptom of diarrhea, which would be for few days with loose stools, and then would temporarily improve before restarting again. Has had no medical intervention otherwise in that time. His vitals are stable and he is denying weakness or dizziness or obvious dehydration. He has been able to stay on top of fluids and get oral intake, but no change in symptoms despite a bland diet. His reports that he did not want to come for medical evaluation until she convinced him to. We discussed that due to length of symptoms, he should be considered for antibiotics, and that if this did not resolve symptoms in a few days, that he should get stool studies done. Might have food borne source of illness, or parasite. He has no fevers or systemic signs of infection otherwise, and there is no blood in the stool. [id number] Imodium did not slow his frequency of episodes, so I will try him with Lomotil today. We discussed that he should only trial this for 2 days and stop as soon as symptoms are improving. He knows to follow up as discussed, or he can go to the emergency department if he gets worrisome symptoms in the meantime. He does have a follow up evaluation with his primary care here at [facility] next week. He will call to move up the appointment if needed. Orders: Orders GI Panel 10/09/23 R19.7 - Diarrhea, unspecified SARS-CoV2/FLU/RSV 10/07/23 J06.9 - Acute upper respiratory infection, unspecified Medications: New azithromycin Take 2 tablets in a single dose. If symptoms persist the following day, take 1 tablet once a day for 2 more days (for a total of 3 days) 4 tabs 0RF diphenoxylate-atropine 2.5-0.025 mg (Lomotil) maximum dose is 8 tablets in a day. Discontinue once symptoms are resolving 2 tabs PO QID 16 tabs 0RF Coding Level of Care Code Est Pt Level 4 (79871) Diagnoses Travelers' diarrhea A09
== END 2023-10-07 13:20 | disposition home or self-care (01) ==
PROVIDERS: PCP Internal Medicine; Visit Provider Physician Assistant Medical
DX: A09 Infectious gastroenteritis and colitis, unspecified (principal)
CPT/HCPCS: 99214

== ENCOUNTER 2023-10-07 15:48 | Outpatient (REF) | payer OTHER, SELFPAY ==
[2023-10-07 16:32] LABS: Influenza A PCR NEGATIVE (Negative); Influenza B PCR NEGATIVE (Negative); Resp Syncy Virus RNA Qual PCR NEGATIVE (Negative); SARS COV2 PCR INHOUSE NEGATIVE (Negative)
== END 2023-10-07 15:49 | disposition home or self-care (01) ==
LOC: HO.LNP 15:48
PROVIDERS: Visit Provider Physician Assistant Medical
DX: J06.9 Acute upper respiratory infection, unspecified (principal)
CPT/HCPCS: 0241U

== ENCOUNTER 2023-10-17 14:45 | Outpatient (AMB) | payer OTHER, SELFPAY ==
[2023-10-17 14:49] VITALS: BP 146/88; PULSE 82; O2SAT 97; BMI 30.3
--- NOTE | 2023-10-17 14:49 | A.OFFPC_ITS ---
Vital Signs 10/17/23 14:49 Height 6 ft 2 in Weight 236 lb 6 oz BMI 30.3 BP 146/88 H Blood Pressure Location Rt brachial Position Sitting Pulse 82 Pulse Source Pulse Oximeter Pulse Oximetry (%) 97 Oxygen Delivery Method Room Air Intake Visit Reasons: diarrea on/off Allergies aspirin Allergy (Unknown, Verified 10/17/23 14:50) anaphylaxis Medication List - Last Reconciled 10/17/23 by Estefania Moon MD atenolol 50 mg PO DAILY 90 days cetirizine (Zyrtec) 10 mg PO DAILY 90 days diphenoxylate-atropine 2.5-0.025 mg (Lomotil) 2 tabs PO QID fluticasone propionate 50 mcg/actuation (Allergy Relief (fluticasone)) 1 spray intranasal DAILY 30 days omeprazole 20 mg PO DAILY 90 days sertraline 100 mg PO DAILY 90 days temazepam 15 mg PO BEDTIME 90 days Tobacco use date assessed: 10/17/23 Dental Screening Dental Screen Date: 10/17/23 Did you have a dental visit in the last 12 months?: No Did you have a dental problem in the last 6 months where you did not have access to dental care?: No Was dental information given to patient?: No HPI diarrea on/off HPI Details Patient is 48-year-old gentleman came in for his regular follow-up appointment Lab order was placed last visit in June, patient did not do the labs He will have today His also tells me that they never received call from Gastroenterology for colonoscopy appointment I have provided telephone 4. 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 He is followed by corporate travel agent [place] He is also hearing impaired and wears hearing aid bilateral Allergies: Patient is on cetirizine and Flonase nasal spray which is controlling his allergies. Hypertension: Blood pressure is slightly elevated today , patient is on atenolol 25 mg Taking temazepam at night as a sleep aid only if needed, script sent more than 30 tablets GERD is stable with omeprazole 20 mg. Anxiety and depression: is stable with sertraline 100 mg daily. Follow-up 3 months [facility] Medical History Pigmentary retinal dystrophy Elevated ferritin LFT elevation Anxiety, generalized Difficulty sleeping Chronic GERD Hypertension, essential Surgical History H/O hand surgery H/O eye surgery No pertinent past surgical history Family History Mother Diabetes Heart abnormality Maternal Grandfather Diabetes Heart abnormality Social History Household Members: Spouse Housing: House Alcohol intake: current Alcohol intake frequency: a few times a month Alcohol type: wine Patient Tobacco Use Status: Never used Tobacco e-Cigarette/Vaping Use: Never Used Second Hand Smoke Exposure: No service: No Current occupational status: disabled Cognitive needs: No Hearing needs: No Vision needs: No Questionnaire Thrive Questionnaire Date Thrive assessed: 04/26/22 AUDIT C Alcohol Use Questionnaire (AUDIT-C) 1. How often do you have a drink containing alcohol?: Never 3. How often do you have six or more drinks on one occasion?: Never Total Score: 0 Score Reviewed/Action Taken: Yes PRESLEY-7 AMB Questionnaire PRESLEY-7 Date PRESLEY - 7 assessed: 01/27/23 Source: Developed by Drs. Jake Ryan, Sharonda Villagomez, Chance Prasad and colleagues, with an educational neel from [employer]. Review of Systems Const Denies chills and Denies fever(s) ENT Denies epistaxis and Denies nasal discharge Card Denies chest pain Resp Denies chest congestion, Denies cough and Denies hemoptysis GI Denies diarrhea and Denies nausea Skin/Breast Denies rash Neuro Reports no additional complaints Psych Reports no additional complaints Endo Reports no additional complaints Physical exam (Primary Care) Vital Signs: Last Vital Signs Pulse 82 10/17/23 14:49 BP 146/88 H 10/17/23 14:49 Pulse Ox 97 10/17/23 14:49 Oxygen Delivery Method Room Air 10/17/23 14:49 BMI result Body Mass Index 30.3 Tobacco/Smoking Status: Tobacco use Status Tobacco use date assessed 10/17/23 10/17/23 14:54 Patient Tobacco Use Status Never used Tobacco 10/17/23 14:54 e-Cigarette/Vaping Use Never Used 10/17/23 14:54 Thrive Assessment: Date of Thrive Assessment Date Thrive assessed 04/26/22 10/17/23 14:54 Const General: cooperative, comfortable and no acute distress Orientation/consciousness: patient oriented x3 HENMT Head: Yes normocephalic Neck Neck: Yes supple Resp Effort & Inspection: normal respiratory effort, no cough and no stridor Cardio Rhythm: regular rhythm Heart sounds: S1 normal heart sound present and S2 normal heart sound present Skin General skin exam: turgor normal Neuro General: patient oriented x3, tone normal and moves all extremities Extrem Right lower extremity: no edema Left lower extremity: no edema Assessment and Plan Assessment & Plan (1) Hypertension, essential: Code(s): I10 - Essential (primary) hypertension (2) Chronic GERD: Code(s): K21.9 - Gastro-esophageal reflux disease without esophagitis (3) Difficulty sleeping: Code(s): G47.9 - Sleep disorder, unspecified (4) Anxiety, generalized: Code(s): F41.1 - Generalized anxiety disorder (5) LFT elevation: Code(s): R79.89 - Other specified abnormal findings of blood chemistry (6) Elevated ferritin: Code(s): R79.89 - Other specified abnormal findings of blood chemistry (7) Thrombocytopenia: Code(s): D69.6 - Thrombocytopenia, unspecified (8) Hearing difficulty: Code(s): H91.90 - Unspecified hearing loss, unspecified ear Qualifiers: Laterality: bilateral Qualified Code(s): H91.93 - Unspecified hearing loss, bilateral (9) Allergic rhinitis: Code(s): J30.9 - Allergic rhinitis, unspecified Qualifiers: Allergic rhinitis seasonality: non-seasonal Allergic rhinitis trigger: other Qualified Code(s): J30.89 - Other allergic rhinitis (10) Legally blind: Code(s): H54.8 - Legal blindness, as defined in [place] (11) Pigmentary retinal dystrophy: Code(s): H35.52 - Pigmentary retinal dystrophy Plan Patient is 48-year-old gentleman came in for his regular follow-up appointment Lab order was placed last visit in June, patient did not do the labs He will have today His also tells me that they never received call from Gastroenterology for colonoscopy appointment I have provided telephone 4. 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 He is followed by corporate travel agent [place] He is also hearing impaired and wears hearing aid bilateral Allergies: Patient is on cetirizine and Flonase nasal spray which is controlling his allergies. Hypertension: Blood pressure is slightly elevated today , patient is on atenolol 25 mg Taking temazepam at night as a sleep aid only if needed, script sent more than 30 tablets GERD is stable with omeprazole 20 mg. Anxiety and depression: is stable with sertraline 100 mg daily. Follow-up 3 months Orders: Orders Complete Blood Count Auto Diff Today D69.6 - Thrombocytopenia, unspecified, F41.1 - Generalized anxiety disorder, G47.9 - Sleep disorder, unspecified, H91.93 - Unspecified hearing loss, bilateral, I10 - Essential (primary) hypertension, J30.89 - Other allergic rhinitis, K21.9 - Gastro-esophageal reflux disease without esophagitis, R19.7 - Diarrhea, unspecified, R79.89 - Other specified abnormal findings of blood chemistry Comprehensive Met. Panel Today D69.6 - Thrombocytopenia, unspecified, F41.1 - Generalized anxiety disorder, G47.9 - Sleep disorder, unspecified, H91.93 - Unspecified hearing loss, bilateral, I10 - Essential (primary) hypertension, J30.89 - Other allergic rhinitis, K21.9 - Gastro-esophageal reflux disease without esophagitis, R19.7 - Diarrhea, unspecified, R79.89 - Other specified abnormal findings of blood chemistry Ferritin Today R79.89 - Other specified abnormal findings of blood chemistry Referrals Gastroenterology Referral Z12.11 - Encounter for screening for malignant neoplasm of colon Medications: Refilled temazepam 15 mg PO BEDTIME 90 days 90 caps 0RF fluticasone propionate 50 mcg/actuation (Allergy Relief (fluticasone)) administer into each nostril 1 spray intranasal DAILY 30 days 1 mL 0RF R09.81 - Nasal congestion atenolol 50 mg PO DAILY 90 days 90 tabs 0RF sertraline 100 mg PO DAILY 90 days 90 tabs 0RF omeprazole 20 mg PO DAILY 90 days 90 caps 0RF cetirizine (Zyrtec) 10 mg PO DAILY 90 days 90 tabs 0RF Coding Level of Care Code Est Pt Level 4 (16091) Complex EM visit Add On G2211 Diagnoses Hypertension, essential I10 Chronic GERD K21.9 Difficulty sleeping G47.9 Anxiety, generalized F41.1 LFT elevation R79.89 Elevated ferritin R79.89 Thrombocytopenia D69.6 Hearing difficulty of both ears H91.93 Laterality: bilateral Non-seasonal allergic rhinitis due to other allergic trigger J30.89 Allergic rhinitis seasonality: non-seasonal Allergic rhinitis trigger: other Legally blind H54.8 Pigmentary retinal dystrophy H35.52
== END 2023-10-17 15:11 | disposition home or self-care (01) ==
PROVIDERS: PCP Internal Medicine; Visit Provider Internal Medicine
DX: I10 Essential (primary) hypertension (principal); K21.9 Gastro-esophageal reflux disease without esophagitis; G47.9 Sleep disorder, unspecified; F41.1 Generalized anxiety disorder; R79.89 Other specified abnormal findings of blood chemistry; D69.6 Thrombocytopenia, unspecified; H91.93 Unspecified hearing loss, bilateral; J30.89 Other allergic rhinitis; H54.8 Legal blindness, as defined in USA; H35.52 Pigmentary retinal dystrophy
CPT/HCPCS: 99214; G2211

== ENCOUNTER 2024-01-08 09:02 | Outpatient (REF) | payer OTHER, SELFPAY ==
[2024-01-08 10:13] LABS: MANUAL DIFF FLAG NO
[2024-01-08 10:32] LABS: Basophils Absolute Auto 0.1 X10*3/uL (0.0-0.2); Basophils Percent Auto 0.9 % (0-2); Eosinophils Absolute Auto 0.4 X10*3/uL (0.0-0.4); Eosinophils Percent Auto 7.1 % (0-4); Hematocrit 44.6 % (42.0-52.0); Hemoglobin 15.1 g/dl (14.0-18.0); Imm Gran Abs Auto 0.01 X10*3/uL (0.00-0.03); Imm Gran Pct Auto 0.2 % (0.0-0.4); Lymphocytes Absolute Auto 2.5 X10*3/uL (1.2-4.9); Lymphocytes Percent Auto 46.2 % (20-40); Mean Corpuscular HGB Conc 33.9 g/dl (31.0-36.0); Mean Corpuscular Hemoglobin 29.1 pg (27.0-33.0); Mean Corpuscular Volume 85.9 fL (80.0-98.0); Mean Platelet Volume 12.4 fL (9.4-12.4); Monocytes Absolute Auto 0.6 X10*3/uL (0.1-1.2); Monocytes Percent Auto 10.5 % (2-11); Neutrophils Absolute Auto 1.9 x10*3/uL (2.0-8.3); Neutrophils Percent Auto 35.1 % (45-73); Platelet Count 168 X10*3/uL (160-400); Red Blood Count 5.19 X10*6/uL (4.60-5.80); Red Cell Distribution Width 13.9 % (11.0-16.0); White Blood Count 5.3 X10*3/uL (4.8-10.8)
[2024-01-08 10:59] LABS: Alanine Aminotransferase 49 U/L (0-40); Alkaline Phosphatase 64 U/L (39-117); Anion Gap 12 (12-20); Aspartate Amino Transferase 37 U/L (5-37); Bilirubin Total 0.8 mg/dL (0.0-1.0); Blood Urea Nitrogen 11 mg/dL (9-16); Calcium 9.2 mg/dL (8.4-10.2); Carbon Dioxide 26 mmol/L (22-29); Chloride 107 mmol/L (96-108); Estimated Glomerular Filt Rate > 60; Glucose Random 103 mg/dL (60-115); Potassium 3.9 mmol/L (3.3-5.1); Sodium 141 mmol/L (135-145); Total Protein 7.2 g/dL (6.5-8.0)
[2024-01-08 11:22] LABS: Ferritin 244 ng/mL (20-250)
[2024-01-09 14:24] LABS: LDL Cholesterol Direct 116 mg/dL (<100)
== END 2024-01-08 09:03 | disposition home or self-care (01) ==
LOC: HO.HMGCLDS 09:02
PROVIDERS: PCP Internal Medicine; Visit Provider Internal Medicine
DX: R19.7 Diarrhea, unspecified (principal); I10 Essential (primary) hypertension; K21.9 Gastro-esophageal reflux disease without esophagitis; G47.9 Sleep disorder, unspecified; F41.1 Generalized anxiety disorder; R79.89 Other specified abnormal findings of blood chemistry; D69.6 Thrombocytopenia, unspecified; H35.52 Pigmentary retinal dystrophy; F33.9 Major depressive disorder, recurrent, unspecified; H91.90 Unspecified hearing loss, unspecified ear; J30.9 Allergic rhinitis, unspecified; H54.8 Legal blindness, as defined in USA; H91.93 Unspecified hearing loss, bilateral; J30.89 Other allergic rhinitis
CPT/HCPCS: 36415; 80053; 82728; 83721; 85025

== ENCOUNTER 2024-01-09 15:11 | Outpatient (AMB) | payer OTHER, SELFPAY ==
[2024-01-09 15:19] VITALS: BP 118/72; PULSE 76; O2SAT 96; BMI 31.1
--- NOTE | 2024-01-09 15:19 | MHC.PC.OV ---
Vital Signs 01/09/24 15:19 Height 6 ft 2 in Weight 242 lb BMI 31.1 BP 118/72 Blood Pressure Location Rt brachial Position Sitting Pulse 76 Pulse Source Pulse Oximeter Pulse Oximetry (%) 96 Oxygen Delivery Method Room Air Intake Visit Reasons: 3M F/U diarrhea on/off Allergies aspirin Allergy (Unknown, Verified 10/17/23 14:50) anaphylaxis Medication List - Last Reconciled 01/09/24 by Estefania Moon MD atenolol 50 mg PO DAILY 90 days cetirizine (Zyrtec) 10 mg PO DAILY 90 days diphenoxylate-atropine 2.5-0.025 mg (Lomotil) 2 tabs PO QID fluticasone propionate 50 mcg/actuation (Allergy Relief (fluticasone)) 1 spray intranasal DAILY 30 days omeprazole 20 mg PO DAILY 90 days sertraline 100 mg PO DAILY 90 days temazepam 15 mg PO BEDTIME 90 days Tobacco use date assessed: 10/17/23 Dental Screening Dental Screen Date: 10/17/23 HPI 3M F/U diarrhea on/off HPI Details Patient is a 48-year-old male came in today for a follow-up visit Patient is taking atenolol 50 mg his blood pressure is controlled. Patient is tolerating medication GERD: Stable with omeprazole 20 mg. Anxiety/depression: Stable with sertraline 100 mg, continue that He also takes temazepam 30 mg at night to sleep. 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 Follow-up 3 months [facility] Medical History Pigmentary retinal dystrophy Elevated ferritin LFT elevation Anxiety, generalized Difficulty sleeping Chronic GERD Hypertension, essential Surgical History H/O hand surgery H/O eye surgery No pertinent past surgical history Family History Mother Diabetes Heart abnormality Maternal Grandfather Diabetes Heart abnormality Social History Household Members: Spouse Housing: House Alcohol intake: current Alcohol intake frequency: a few times a month Alcohol type: wine Patient Tobacco Use Status: Never used Tobacco e-Cigarette/Vaping Use: Never Used Second Hand Smoke Exposure: No service: No Current occupational status: disabled Cognitive needs: No Hearing needs: No Vision needs: No Questionnaire PHQ-9 Over the last 2 weeks, how often have you been bothered by any of the following problems? 1. Little interest or pleasure in doing things: not at all 2. Feeling down, depressed, or hopeless: not at all 3. Trouble falling or staying asleep, or sleeping too much: nearly every day 4. Feeling tired or having little energy: not at all 5. Poor appetite or overeating: not at all 6. Feeling bad about yourself - or that you are a failure or have let yourself or your family down: not at all Source: Developed by Drs. Jake Ryan, Sharonda Villagomez, Chance Prasad and colleagues, with an educational neel from [employer]. Thrive Questionnaire Date Thrive assessed: 04/26/22 PRESLEY-7 AMB Questionnaire PRESLEY-7 Date PRESLEY - 7 assessed: 01/27/23 Source: Developed by Drs. Jake Ryan, Sharonda Villagomez, Chance Prasad and colleagues, with an educational neel from [employer]. Review of Systems Const Denies chills and Denies fever(s) ENT Denies epistaxis and Denies nasal discharge Card Denies chest pain Resp Denies chest congestion, Denies cough and Denies hemoptysis GI Denies diarrhea and Denies nausea Skin/Breast Denies rash Neuro Reports no additional complaints Psych Reports no additional complaints Endo Reports no additional complaints Physical exam (Primary Care) Vital Signs: Last Vital Signs Pulse 76 01/09/24 15:19 BP 118/72 01/09/24 15:19 Pulse Ox 96 01/09/24 15:19 Oxygen Delivery Method Room Air 01/09/24 15:19 BMI result Body Mass Index 31.1 Tobacco/Smoking Status: Tobacco use Status Tobacco use date assessed 10/17/23 01/09/24 15:20 Patient Tobacco Use Status Never used Tobacco 01/09/24 15:20 e-Cigarette/Vaping Use Never Used 01/09/24 15:20 Thrive Assessment: Date of Thrive Assessment Date Thrive assessed 01/17/23 10/01/24 15:20 Const General: cooperative, comfortable and no acute distress Orientation/consciousness: patient oriented x3 HENMT Head: Yes normocephalic Eyes General: appearance normal, both eyes and all related structures Neck Neck: Yes supple Resp Effort & Inspection: normal respiratory effort, no cough and no stridor Cardio Rhythm: regular rhythm Heart sounds: S1 normal heart sound present and S2 normal heart sound present Skin General skin exam: turgor normal Neuro General: patient oriented x3, tone normal and moves all extremities Extrem Right lower extremity: no edema Left lower extremity: no edema Coding Level of Care Code Est Pt Level 4 (89692) Complex EM visit Add On G2211 Diagnoses Hypertension, essential I10 Anxiety, generalized F41.1 Difficulty sleeping G47.9 Chronic GERD K21.9 LFT elevation R79.89 Non-seasonal allergic rhinitis due to other allergic trigger J30.89 Allergic rhinitis trigger: other Allergic rhinitis seasonality: non-seasonal Legally blind H54.8 Hearing difficulty of both ears H91.93 Laterality: bilateral Assessment & Plan Assessment & Plan (1) Hypertension, essential: Code(s): I10 - Essential (primary) hypertension Category: Medical (2) Anxiety, generalized: Code(s): F41.1 - Generalized anxiety disorder Category: Medical (3) Difficulty sleeping: Code(s): G47.9 - Sleep disorder, unspecified Category: Medical (4) Chronic GERD: Code(s): K21.9 - Gastro-esophageal reflux disease without esophagitis Category: Medical (5) LFT elevation: Code(s): R79.89 - Other specified abnormal findings of blood chemistry Category: Medical (6) Allergic rhinitis: Code(s): J30.9 - Allergic rhinitis, unspecified Category: Medical Qualifiers: Allergic rhinitis trigger: other Allergic rhinitis seasonality: non-seasonal Qualified Code(s): J30.89 - Other allergic rhinitis (7) Legally blind: Code(s): H54.8 - Legal blindness, as defined in [place] Category: Medical (8) Hearing difficulty: Code(s): H91.90 - Unspecified hearing loss, unspecified ear Category: Medical Qualifiers: Laterality: bilateral Qualified Code(s): H91.93 - Unspecified hearing loss, bilateral Plan Patient is a 48-year-old male came in today for a follow-up visit Patient is taking atenolol 50 mg his blood pressure is controlled. Patient is tolerating medication GERD: Stable with omeprazole 20 mg. Anxiety/depression: Stable with sertraline 100 mg, continue that He also takes temazepam 30 mg at night to sleep. 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
== END 2024-01-09 15:39 | disposition home or self-care (01) ==
PROVIDERS: PCP Internal Medicine; Visit Provider Internal Medicine
DX: I10 Essential (primary) hypertension (principal); F41.1 Generalized anxiety disorder; G47.9 Sleep disorder, unspecified; K21.9 Gastro-esophageal reflux disease without esophagitis; R79.89 Other specified abnormal findings of blood chemistry; J30.89 Other allergic rhinitis; H54.8 Legal blindness, as defined in USA; H91.93 Unspecified hearing loss, bilateral; Z23 Encounter for immunization

== ENCOUNTER → 2024-01-09 15:11 | Outpatient (BNVA) | payer OTHER, SELFPAY | PROVIDERS: PCP Internal Medicine; Visit Provider Internal Medicine | DX: Z23 Encounter for immunization (principal); I10 Essential (primary) hypertension; F41.1 Generalized anxiety disorder; K21.9 Gastro-esophageal reflux disease without esophagitis; R79.89 Other specified abnormal findings of blood chemistry; J30.89 Other allergic rhinitis; H54.8 Legal blindness, as defined in USA; H91.93 Unspecified hearing loss, bilateral | CPT/HCPCS: 90471; 90656; 99212 ==

== ENCOUNTER 2024-04-16 14:45 | Outpatient (AMB) | payer OTHER, SELFPAY ==
[2024-04-16 14:50] VITALS: BP 128/74; PULSE 78; O2SAT 98; BMI 30.2
--- NOTE | 2024-04-16 14:50 | MHC.PC.OV ---
Vital Signs 04/16/24 14:50 Height 6 ft 2 in Weight 235 lb 8 oz BMI 30.2 BP 128/74 Blood Pressure Location Rt brachial Pulse 78 Pulse Source Pulse Oximeter Pulse Oximetry (%) 98 Oxygen Delivery Method Room Air Intake Visit Reasons: 3 months f/up Allergies aspirin Allergy (Unknown, Verified 04/16/24 14:53) anaphylaxis Medication List - Last Reconciled 04/16/24 by Estefania Moon MD atenolol 50 mg PO DAILY 90 days cetirizine (Zyrtec) 10 mg PO DAILY 90 days diphenoxylate-atropine 2.5-0.025 mg (Lomotil) 2 tabs PO QID fluticasone propionate 50 mcg/actuation (Allergy Relief (fluticasone)) 1 spray intranasal DAILY 30 days omeprazole 20 mg PO DAILY 90 days sertraline 100 mg PO DAILY 90 days temazepam 15 mg PO BEDTIME 90 days Tobacco use date assessed: 04/16/24 Dental Screening Dental Screen Date: 04/16/24 Did you have a dental visit in the last 12 months?: Yes Did you have a dental problem in the last 6 months where you did not have access to dental care?: No Was dental information given to patient?: Patient has dentist HPI 3 months f/up HPI Details History of Present Illness - The patient is a 48-year-old male presenting with persistent cough with sputum production. - He experiences the sensation of phlegm obstructing his chest, causing notable discomfort. - The symptom onset was about one week prior, initially accompanied by congestion, though the congestion has since resolved. - There is no fever, chest pain, or breathlessness, although night-time symptoms include loud snoring. - Past use of fnwj-vkp-dcmpjxo cough remedies discontinued at this time. - No prescription medications taken for current symptoms, pending antibiotic initiation. -hypertension is stable patient is taking medication Difficulty sleeping: Patient is on temazepam GERD is stable with PPI Allergies: Continue cetirizine and Flonase nasal spray Anxiety stable with sertraline All medication refills sent Review of Systems - Respiratory: Reports persistent cough with sputum, absence of shortness of breath, absence of chest pain, and difficulty expelling sputum. - General: No fever no chills - Neurological: No headaches no dizziness - Ear nose throat: No sore throat no hearing difficulty no ear pain - Cardiovascular: No syncope, no chest pain, no palpitations - Gastrointestinal: No nausea vomiting or diarrhea - Endocrine: No polyuria polydipsia no heat intolerance - Genitourinary: No dysuria , no blood in urine Physical Exam General: No acute distress HEENT: No acute findings Neck: Supple Respiratory system: Lungs are clear, able to talk in full sentences, no audible wheeze cardiovascular: S1-S2 regular in rate and rhythm Gastrointestinal: No pain Extremities: No new findings CLOUD ARCHITECT: Alert awake oriented x3 motor sensory intact Skin: Normal turgor Patient Instructions - A prescription for cough syrup will be sent; take it at night to aid sleep. - An antibiotic prescription will be sent; take as directed. - Continue with any routine medications that have been refilled. - Attend the already scheduled follow-up appointment in June. Labs are needed before visit order placed REPLACED BY [facility] Medical History Pigmentary retinal dystrophy Elevated ferritin LFT elevation Anxiety, generalized Difficulty sleeping Chronic GERD Hypertension, essential Surgical History H/O hand surgery H/O eye surgery No pertinent past surgical history Family History Mother Diabetes Heart abnormality Maternal Grandfather Diabetes Heart abnormality Social History Household Members: Spouse Housing: House Alcohol intake: current Alcohol intake frequency: a few times a month Alcohol type: wine Patient Tobacco Use Status: Never used Tobacco e-Cigarette/Vaping Use: Never Used Second Hand Smoke Exposure: No service: No Current occupational status: disabled Cognitive needs: No Hearing needs: No Vision needs: No Questionnaire PHQ-9 Over the last 2 weeks, how often have you been bothered by any of the following problems? 1. Little interest or pleasure in doing things: not at all 2. Feeling down, depressed, or hopeless: not at all 3. Trouble falling or staying asleep, or sleeping too much: nearly every day 4. Feeling tired or having little energy: not at all 5. Poor appetite or overeating: not at all 6. Feeling bad about yourself - or that you are a failure or have let yourself or your family down: not at all 7. Trouble concentrating on things, such as reading the newspaper or watching television: not at all 8. Moving or speaking so slowly that other people could have noticed. Or the opposite - being so fidgety or restless that you have been moving around a lot more than usual: not at all 9. Thoughts that you would be better off or of hurting yourself in some way: not at all Total score: 3 Depression Screening Interpretation: Negative Depression Screening Done: Yes 88084 - PHQ-9 Billing: Yes Source: Developed by Drs. Jake Ryan, Sharonda Villagomez, Chance Prasad and colleagues, with an educational neel from [employer]. Thrive Questionnaire Date Thrive assessed: 04/16/24 I am a: Patient What is your living situation today?: I have a steady place to live Within the past 12 months, did the food you bought not last and you didn't have the money to get more?: Never true Within the past 12 months, did you worry whether your food would run out before you got money to buy more?: Never true Do you have trouble paying for medicines?: No Do you have trouble getting transportation to medical appointments?: No Do you have trouble paying your heating and electricity bill?: I choose not to answer this question Do you have trouble taking care of your child, family member or friend?: I choose not to answer this question Do you have trouble with day-to-day activities such as bathing, preparing meals, shopping, managing finances, etc.?: I choose not to answer this question Are you currently unemployed and looking for a job?: No Are you interested in more education?: No Please select the resources that you would like help with: None Currently or been in a relationship where the following occur: No concerns reported THRIVE Score: 0 AUDIT C Alcohol Use Questionnaire (AUDIT-C) 1. How often do you have a drink containing alcohol?: Monthly or less 2. How many drinks containing alcohol do you have on a typical day when you are drinking?: 1 or 2 3. How often do you have six or more drinks on one occasion?: Less than monthly Total Score: 2 Score Reviewed/Action Taken: Yes PRESLEY-7 AMB Questionnaire PRESLEY-7 Date PRESLEY - 7 assessed: 04/16/24 Feeling nervous, anxious, or on edge: 0 = Not at all Not being able to stop or control worryin = Not at all Worrying too much about different things: 0 = Not at all Trouble relaxin = Not at all Being so restless that it is hard to sit still: 0 = Not at all Becoming easily annoyed or irritable: 0 = Not at all Feeling afraid as if something awful might happen: 0 = Not at all Total PRESLEY-7 score (0-4 normal; 5-9 mild; 10-14 moderate; 15-21 severe): 0 Source: Developed by Drs. Jake Ryan, Sharonda Villagomez, Chance Prasad and colleagues, with an educational neel from [employer]. PRESLEY-7 Assessment Billing PRESLEY-7 Assessment Tool: PRESLEY-7 Assessment 69468 Physical exam (Primary Care) Vital Signs: Last Vital Signs Pulse 78 04/16/24 14:50 BP 128/74 04/16/24 14:50 Pulse Ox 98 04/16/24 14:50 Oxygen Delivery Method Room Air 04/16/24 14:50 BMI result Body Mass Index 30.2 Tobacco/Smoking Status: Tobacco use Status Tobacco use date assessed 04/16/24 04/16/24 14:54 Patient Tobacco Use Status Never used Tobacco 04/16/24 14:54 e-Cigarette/Vaping Use Never Used 04/16/24 14:54 PHQ-9: PHQ-9 Score PHQ-9: Total score 3 04/16/24 14:54 Depression Screening Interpretation: Negative Thrive Assessment: Date of Thrive Assessment Date Thrive assessed 04/16/24 04/16/24 14:54 Currently or been in a relationship where the following occur: No concerns reported Coding Level of Care Code Est Pt Level 4 (37062) Complex EM visit Add On G2211 Diagnoses Hypertension, essential I10 Chronic GERD K21.9 Difficulty sleeping G47.9 Anxiety, generalized F41.1 LFT elevation R79.89 Elevated ferritin R79.89 Additional Codes PRESLEY-7 Assessment Billing - PRESLEY-7 Assessment Tool: PRESLEY-7 Assessment 67181 ([id number]) PHQ-9 - 82606 - PHQ-9 Billing: Yes ([id number]) Assessment & Plan Assessment & Plan (1) Hypertension, essential: Code(s): I10 - Essential (primary) hypertension Category: Medical (2) Chronic GERD: Code(s): K21.9 - Gastro-esophageal reflux disease without esophagitis Category: Medical (3) Difficulty sleeping: Code(s): G47.9 - Sleep disorder, unspecified Category: Medical (4) Anxiety, generalized: Code(s): F41.1 - Generalized anxiety disorder Category: Medical (5) LFT elevation: Code(s): R79.89 - Other specified abnormal findings of blood chemistry Category: Medical (6) Elevated ferritin: Code(s): R79.89 - Other specified abnormal findings of blood chemistry Category: Medical Plan History of Present Illness - The patient is a 48-year-old male presenting with persistent cough with sputum production. - He experiences the sensation of phlegm obstructing his chest, causing notable discomfort. - The symptom onset was about one week prior, initially accompanied by congestion, though the congestion has since resolved. - There is no fever, chest pain, or breathlessness, although night-time symptoms include loud snoring. - Past use of oqqu-uks-uyqsyhl cough remedies discontinued at this time. - No prescription medications taken for current symptoms, pending antibiotic initiation. -hypertension is stable patient is taking medication Difficulty sleeping: Patient is on temazepam GERD is stable with PPI Allergies: Continue cetirizine and Flonase nasal spray Anxiety stable with sertraline All medication refills sent Review of Systems - Respiratory: Reports persistent cough with sputum, absence of shortness of breath, absence of chest pain, and difficulty expelling sputum. - General: No fever no chills - Neurological: No headaches no dizziness - Ear nose throat: No sore throat no hearing difficulty no ear pain - Cardiovascular: No syncope, no chest pain, no palpitations - Gastrointestinal: No nausea vomiting or diarrhea - Endocrine: No polyuria polydipsia no heat intolerance - Genitourinary: No dysuria , no blood in urine Physical Exam General: No acute distress HEENT: No acute findings Neck: Supple Respiratory system: Lungs are clear, able to talk in full sentences, no audible wheeze cardiovascular: S1-S2 regular in rate and rhythm Gastrointestinal: No pain Extremities: No new findings CLOUD ARCHITECT: Alert awake oriented x3 motor sensory intact Skin: Normal turgor Patient Instructions - A prescription for cough syrup will be sent; take it at night to aid sleep. - An antibiotic prescription will be sent; take as directed. - Continue with any routine medications that have been refilled. - Attend the already scheduled follow-up appointment in June. Labs are needed before visit order placed Orders: Orders Complete Blood Count Auto Diff Today F41.1 - Generalized anxiety disorder, G47.9 - Sleep disorder, unspecified, I10 - Essential (primary) hypertension, K21.9 - Gastro-esophageal reflux disease without esophagitis, R79.89 - Other specified abnormal findings of blood chemistry Comprehensive Met. Panel Today F41.1 - Generalized anxiety disorder, G47.9 - Sleep disorder, unspecified, I10 - Essential (primary) hypertension, K21.9 - Gastro-esophageal reflux disease without esophagitis, R79.89 - Other specified abnormal findings of blood chemistry LDL Cholesterol Direct Today F41.1 - Generalized anxiety disorder, G47.9 - Sleep disorder, unspecified, I10 - Essential (primary) hypertension, K21.9 - Gastro-esophageal reflux disease without esophagitis, R79.89 - Other specified abnormal findings of blood chemistry Ferritin Today R79.89 - Other specified abnormal findings of blood chemistry Medications: New azithromycin Take 2 tablets today then 1 daily 250 mg PO ONCE 5 days 6 tabs 0RF J06.9 - Acute upper respiratory infection, unspecified codeine-guaifenesin 10-200 mg/5 mL (Coditussin AC) 10 mL PO .qhs 10 days PRN 100 mL 0RF allergy symptoms Refilled fluticasone propionate 50 mcg/actuation (Allergy Relief (fluticasone)) administer into each nostril 1 spray intranasal DAILY 30 days 1 mL 0RF R09.81 - Nasal congestion temazepam 15 mg PO BEDTIME 90 days 90 caps 0RF sertraline 100 mg PO DAILY 90 days 90 tabs 0RF omeprazole 20 mg PO DAILY 90 days 90 caps 0RF atenolol 50 mg PO DAILY 90 days 90 tabs 0RF cetirizine (Zyrtec) 10 mg PO DAILY 90 days 90 tabs 0RF Discontinued diphenoxylate-atropine 2.5-0.025 mg (Lomotil) maximum dose is 8 tablets in a day. Discontinue once symptoms are resolving Discontinued Reason: Doctor's Order 2 tabs PO QID 16 tabs 0RF
== END 2024-04-16 15:09 | disposition home or self-care (01) ==
PROVIDERS: PCP Internal Medicine; Visit Provider Internal Medicine
DX: I10 Essential (primary) hypertension (principal); K21.9 Gastro-esophageal reflux disease without esophagitis; G47.9 Sleep disorder, unspecified; F41.1 Generalized anxiety disorder; R79.89 Other specified abnormal findings of blood chemistry

== ENCOUNTER → 2024-04-16 14:45 | Outpatient (BNVA) | payer OTHER, SELFPAY | PROVIDERS: PCP Internal Medicine; Visit Provider Internal Medicine | DX: K21.9 Gastro-esophageal reflux disease without esophagitis (principal); I10 Essential (primary) hypertension; G47.9 Sleep disorder, unspecified; F41.1 Generalized anxiety disorder; R79.89 Other specified abnormal findings of blood chemistry | CPT/HCPCS: 96127; 99212 ==

== ENCOUNTER 2024-07-02 15:05 | Outpatient (AMB) | payer OTHER, SELFPAY ==
[2024-07-02 15:16] VITALS: BP 120/70; PULSE 76; O2SAT 97; BMI 30.7
--- NOTE | 2024-07-02 15:16 | A.OFFPC_ITS ---
Vital Signs 07/02/24 15:16 Height 6 ft 2 in Weight 239 lb 6 oz BMI 30.7 BP 120/70 Blood Pressure Location Rt brachial Position Sitting Pulse 76 Pulse Source Pulse Oximeter Pulse Oximetry (%) 97 Oxygen Delivery Method Room Air Intake Visit Reasons: Annual PE Allergies aspirin Allergy (Unknown, Verified 04/16/24 14:53) anaphylaxis Medication List - Last Reconciled 07/02/24 by Estefania Moon MD atenolol 50 mg PO DAILY 90 days cetirizine (Zyrtec) 10 mg PO DAILY 90 days fluticasone propionate 50 mcg/actuation (Allergy Relief (fluticasone)) 1 spray intranasal DAILY 30 days omeprazole 20 mg PO DAILY 90 days sertraline 100 mg PO DAILY 90 days temazepam 15 mg PO BEDTIME 90 days Tobacco use date assessed: 07/02/24 Dental Screening Dental Screen Date: 07/02/24 Did you have a dental visit in the last 12 months?: Yes Did you have a dental problem in the last 6 months where you did not have access to dental care?: No Was dental information given to patient?: Patient has dentist HPI Annual PE HPI Details History of Present Illness - The patient is a 48-year-old male pres enting for a physical examination. Mercedes ent is legally blind - The patient's essential hypertension r emains well managed with current medication, atenolol 50 mg, resulting in excellent blood pressure control. - The patient reports improvement in hea rtburn symptoms using omeprazole as needed, without continuous usage. 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 - continued to take temazepam has a slee p aid GERD is stable Allergies stable Anxiety stable Health Maintenance - Scheduled appointment for colonoscopy screening due to lack of prior screenings. - Discussion on maintaining normal iron levels includes advising patient about upcoming lab work to re-evaluate iron levels. Patient Instructions - Put a reminder to complete the lab [place] ts for future appointments. - Schedule a colonoscopy. - Continue current medication regimen, a djustments to omeprazole based on symptom presentation. - Await trial initiation for congenital vision impairment; assured that delay won't affect treatment efficacy. Review of Systems - General: No fever no chills - Neurological: No headaches no dizzin ess - Ear nose throat: No sore throat no hearing difficulty no ear pain - Cardiovascular: No syncope, no chest pain, no palpitations - Gastrointestinal: No nausea vomiting or diarrhea - Endocrine: No polyuria polydipsia no heat intolerance - Genitourinary: No dysuria - Skin: No new complaints Physical Exam General: Cooperative, healthy appearing, comfortable, no acute distress Orientation: Patient oriented x3 Head: Normal to inspection Nose: Normal external nose present Face and sinus: Normal facial exam Eyes: Vision is worse, very blurred images Neck: Normal visual inspection and supple Respiratory: Normal respiratory effort and able to speak in complete sentences. Clear to auscultation, no stridor Cardiovascular: S1 and S2 GI: Normal to inspection. Soft to palpation and nontender Skin: Turgor normal, no acute findings Neuro: Patient oriented x3, motor sensory intact Extremities: Normal to inspection [facility] Medical History Pigmentary retinal dystrophy Elevated ferritin LFT elevation Anxiety, generalized Difficulty sleeping Chronic GERD Hypertension, essential Surgical History H/O hand surgery H/O eye surgery No pertinent past surgical history Family History Mother Diabetes Heart abnormality Maternal Grandfather Diabetes Heart abnormality Social History Household Members: Spouse Housing: House Alcohol intake: current Alcohol intake frequency: a few times a month Alcohol type: wine Patient Tobacco Use Status: Never used Tobacco e-Cigarette/Vaping Use: Never Used Second Hand Smoke Exposure: No service: No Current occupational status: disabled Cognitive needs: No Hearing needs: No Vision needs: No Questionnaire PHQ-9 Over the last 2 weeks, how often have you been bothered by any of the following problems? 1. Little interest or pleasure in doing things: not at all 2. Feeling down, depressed, or hopeless: not at all 3. Trouble falling or staying asleep, or sleeping too much: several days 4. Feeling tired or having little energy: not at all 5. Poor appetite or overeating: not at all 6. Feeling bad about yourself - or that you are a failure or have let yourself or your family down: not at all 7. Trouble concentrating on things, such as reading the newspaper or watching television: not at all 8. Moving or speaking so slowly that other people could have noticed. Or the opposite - being so fidgety or restless that you have been moving around a lot more than usual: not at all 9. Thoughts that you would be better off or of hurting yourself in some way: not at all Total score: 1 Depression Screening Interpretation: Negative Depression Screening Done: Yes 63003 - PHQ-9 Billing: Yes Source: Developed by Drs. Jake Ryan, Sharonda Villagomez, Chance Prasad and colleagues, with an educational neel from [employer]. Thrive Questionnaire Date Thrive assessed: 07/02/24 I am a: Patient What is your living situation today?: I have a steady place to live Within the past 12 months, did the food you bought not last and you didn't have the money to get more?: Never true Within the past 12 months, did you worry whether your food would run out before you got money to buy more?: Never true Do you have trouble paying for medicines?: No Do you have trouble getting transportation to medical appointments?: No Do you have trouble paying your heating and electricity bill?: I choose not to answer this question Do you have trouble taking care of your child, family member or friend?: I choose not to answer this question Do you have trouble with day-to-day activities such as bathing, preparing meals, shopping, managing finances, etc.?: I choose not to answer this question Are you currently unemployed and looking for a job?: No Are you interested in more education?: No Please select the resources that you would like help with: None Currently or been in a relationship where the following occur: No concerns reported THRIVE Score: 0 AUDIT C Alcohol Use Questionnaire (AUDIT-C) 1. How often do you have a drink containing alcohol?: Monthly or less 2. How many drinks containing alcohol do you have on a typical day when you are drinking?: 1 or 2 3. How often do you have six or more drinks on one occasion?: Less than monthly Total Score: 2 Score Reviewed/Action Taken: Yes PRESLEY-7 AMB Questionnaire PRESLEY-7 Date PRESLEY - 7 assessed: 07/02/24 Source: Developed by Drs. Jake Ryan, Sharonda Villagomez, Chance Prasad and colleagues, with an educational neel from [employer]. Physical exam (Primary Care) Vital Signs: Last Vital Signs Pulse 76 07/02/24 15:16 BP 120/70 07/02/24 15:16 Pulse Ox 97 07/02/24 15:16 Oxygen Delivery Method Room Air 07/02/24 15:16 BMI result Body Mass Index 30.7 Tobacco/Smoking Status: Tobacco use Status Tobacco use date assessed 07/02/24 07/02/24 15:21 Patient Tobacco Use Status Never used Tobacco 07/02/24 15:19 e-Cigarette/Vaping Use Never Used 07/02/24 15:19 PHQ-9: PHQ-9 Score PHQ-9: Total score 1 07/02/24 15:21 Depression Screening Interpretation: Negative Thrive Assessment: Date of Thrive Assessment Date Thrive assessed 07/02/24 07/02/24 15:21 Currently or been in a relationship where the following occur: No concerns reported Coding Level of Care Code Est Pt Level 3 (27536) Est Pt Prev Care 40-64y(32622) Diagnoses Encounter for general adult medical examination with abnormal findings Z00.01 Hypertension, essential I10 Chronic GERD K21.9 Difficulty sleeping G47.9 Anxiety, generalized F41.1 Elevated ferritin R79.89 Mild episode of recurrent major depressive disorder F33.0 Active/Remission status: currently active Major depression episode severity: mild Additional Codes PHQ-9 - 27922 - PHQ-9 Billing: Yes ([id number]) Assessment & Plan Assessment & Plan (1) Encounter for general adult medical examination with abnormal findings: Code(s): Z00.01 - Encounter for general adult medical examination with abnormal findings Category: Medical (2) Hypertension, essential: Code(s): I10 - Essential (primary) hypertension Category: Medical (3) Chronic GERD: Code(s): K21.9 - Gastro-esophageal reflux disease without esophagitis Category: Medical (4) Difficulty sleeping: Code(s): G47.9 - Sleep disorder, unspecified Category: Medical (5) Anxiety, generalized: Code(s): F41.1 - Generalized anxiety disorder Category: Medical (6) Elevated ferritin: Code(s): R79.89 - Other specified abnormal findings of blood chemistry Category: Medical (7) Major depression, recurrent: Code(s): F33.9 - Major depressive disorder, recurrent, unspecified Category: Medical Qualifiers: Active/Remission status: currently active Major depression episode severity: mild Qualified Code(s): F33.0 - Major depressive disorder, recurrent, mild Plan History of Present Illness - The patient is a 48-year-old male presenting for a physical examination. Patient is legally blind - The patient's essential hypertension remains well managed with current medication, atenolol 50 mg, resulting in excellent blood pressure control. - The patient reports improvement in heartburn symptoms using omeprazole as needed, without continuous usage. 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 - continued to take temazepam has a sleep aid GERD is stable Allergies stable Anxiety stable Health Maintenance - Scheduled appointment for colonoscopy screening due to lack of prior screenings. - Discussion on maintaining normal iron levels includes advising patient about upcoming lab work to re-evaluate iron levels. Patient Instructions - Put a reminder to complete the lab tests for future appointments. - Schedule a colonoscopy. - Continue current medication regimen, adjustments to omeprazole based on symptom presentation. - Await trial initiation for congenital vision impairment; assured that delay won't affect treatment efficacy. Medications: Refilled temazepam 15 mg PO BEDTIME 90 days 90 caps 0RF
== END 2024-07-02 15:40 | disposition home or self-care (01) ==
LOC: HO.HMCC 15:06
PROVIDERS: PCP Internal Medicine; Visit Provider Internal Medicine
DX: Z00.00 Encounter for general adult medical examination without abnormal findings (principal); I10 Essential (primary) hypertension; F33.0 Major depressive disorder, recurrent, mild; K21.9 Gastro-esophageal reflux disease without esophagitis; G47.9 Sleep disorder, unspecified; F41.1 Generalized anxiety disorder; R79.89 Other specified abnormal findings of blood chemistry

== ENCOUNTER → 2024-07-02 15:05 | Outpatient (BNVA) | payer OTHER, SELFPAY | PROVIDERS: PCP Internal Medicine; Visit Provider Internal Medicine | DX: Z00.01 Encounter for general adult medical examination with abnormal findings (principal); I10 Essential (primary) hypertension; K21.9 Gastro-esophageal reflux disease without esophagitis; F41.1 Generalized anxiety disorder; F33.0 Major depressive disorder, recurrent, mild; R79.89 Other specified abnormal findings of blood chemistry; G47.9 Sleep disorder, unspecified | CPT/HCPCS: 96127; 99396 ==

== ENCOUNTER 2024-07-31 12:29 | Outpatient (REF) | payer OTHER, SELFPAY ==
[2024-07-31 15:59] LABS: MANUAL DIFF FLAG NO
[2024-07-31 16:02] LABS: Basophils Percent Auto 0.8 % (0-2); Eosinophils Absolute Auto 0.4 X10*3/uL (0.0-0.4); Eosinophils Percent Auto 7.4 % (0-4); Hematocrit 44.2 % (42.0-52.0); Hemoglobin 15.2 g/dl (14.0-18.0); Imm Gran Abs Auto 0.01 X10*3/uL (0.00-0.03); Imm Gran Pct Auto 0.2 % (0.0-0.4); Lymphocytes Absolute Auto 2.3 X10*3/uL (1.2-4.9); Lymphocytes Percent Auto 48.6 % (20-40); Mean Corpuscular HGB Conc 34.4 g/dl (31.0-36.0); Mean Corpuscular Hemoglobin 29.6 pg (27.0-33.0); Mean Platelet Volume 12.5 fL (9.4-12.4); Monocytes Absolute Auto 0.5 X10*3/uL (0.1-1.2); Neutrophils Absolute Auto 1.6 x10*3/uL (2.0-8.3); Platelet Count 161 X10*3/uL (160-400); Red Blood Count 5.14 X10*6/uL (4.60-5.80); Red Cell Distribution Width 13.9 % (11.0-16.0); White Blood Count 4.7 X10*3/uL (4.8-10.8)
[2024-07-31 16:27] LABS: Alanine Aminotransferase 38 U/L (0-40); Alkaline Phosphatase 67 U/L (39-117); Anion Gap 10 (12-20); Aspartate Amino Transferase 41 U/L (5-37); Blood Urea Nitrogen 16 mg/dL (9-16); Calcium 9.3 mg/dL (8.4-10.2); Carbon Dioxide 29 mmol/L (22-29); Chloride 105 mmol/L (96-108); Estimated Glomerular Filt Rate > 60; Glucose Random 96 mg/dL (60-115); Potassium 3.9 mmol/L (3.3-5.1); Sodium 140 mmol/L (135-145); Total Protein 7.3 g/dL (6.5-8.0)
[2024-07-31 16:36] LABS: Ferritin 218 ng/mL (20-250)
[2024-08-01 18:23] LABS: LDL Cholesterol Direct 139 mg/dL (<100)
== END 2024-07-31 12:30 | disposition home or self-care (01) ==
LOC: HO.HMGCLDS 12:29
PROVIDERS: PCP Internal Medicine; Visit Provider Internal Medicine
DX: R79.89 Other specified abnormal findings of blood chemistry (principal); I10 Essential (primary) hypertension; K21.9 Gastro-esophageal reflux disease without esophagitis; G47.9 Sleep disorder, unspecified; F41.1 Generalized anxiety disorder
CPT/HCPCS: 36415; 80053; 82728; 83721; 85025

== ENCOUNTER 2024-08-08 12:22 | Outpatient (AMB) | payer OTHER, SELFPAY ==
--- NOTE | 2024-08-08 12:27 | MHC.OFFVIS ---
Vital Signs 08/08/24 12:29 Height 6 ft 2 in Weight 236 lb BMI 30.3 BP 144/80 H Blood Pressure Location Lt brachial Position Sitting Pulse 78 Pulse Oximetry (%) 96 Oxygen Delivery Method Room Air Intake Visit Reasons: colo screening Intake Note: Patient new consult for 1st pre Colonoscopy screening. Patient blind and deaf condition. Patient denies any GI issues. [facility] Specialists Required: No Accompanied by: Spouse Allergies aspirin Allergy (Unknown, Verified 08/08/24 12:27) anaphylaxis Medication List - Last Reconciled 08/08/24 by Navya Mejía CNP atenolol 50 mg PO DAILY 90 days cetirizine (Zyrtec) 10 mg PO DAILY PRN fluticasone propionate 50 mcg/actuation (Allergy Relief (fluticasone)) 1 spray intranasal DAILY 30 days omeprazole 20 mg PO DAILY PRN sertraline 100 mg PO DAILY 90 days temazepam 15 mg PO BEDTIME PRN HPI HPI colo screening: Details: Patient is a 48-year-old male with PMH of hypertension, anxiety, depression, legally blind with decrease hearing and GERD. He was referred by PCP for pre CRC screening. Pt is here today for index colonoscopy screening. Patient is accompanied by his who is translating for this visit. he reports regular stools without difficulty. Reports occasional acid reflux triggered by spicy or acidic foods. Also experiences regurgitation. Shares symptoms are relieved after a dose of omeprazole. Patient denies: fever/chills, n/v, appetite changes, unintentional wt loss, ab pain, dysphasia, or melena/hematochezia. Reports he reports he was previously connected with Hematology for management of elevated iron. States he was giving blood, with most recent donation approximately 2 years ago on. States the plan is to reconnect with Hematology for follow-up, new referral recently placed by PCP. Social hx: 1-2 glasses of wine/month denies recreational drug use non-smoker family hx as below denies personal hx of CA denies other significant cardiopulmonary history tolerated anesthesia in the past without difficulty. [facility] Medical History (Updated 08/08/24 @ 15:04 by Navya Mejía CNP) Acid reflux Transaminitis Pigmentary retinal dystrophy Elevated ferritin LFT elevation Anxiety, generalized Difficulty sleeping Chronic GERD Hypertension, essential Surgical History H/O hand surgery H/O eye surgery No pertinent past surgical history Family History Mother Diabetes Heart abnormality Maternal Grandfather Diabetes Heart abnormality Social History Household Members: Spouse Housing: House Alcohol intake: current Alcohol intake frequency: a few times a month Alcohol type: wine Patient Tobacco Use Status: Never used Tobacco e-Cigarette/Vaping Use: Never Used Second Hand Smoke Exposure: No service: No Current occupational status: disabled Cognitive needs: No Hearing needs: No Vision needs: No Review of Systems Const Reports as per HPI ENT Reports as per HPI Card Reports as per HPI Resp Reports as per HPI GI Reports as per HPI Reports as per HPI Physical Exam Vital Signs: Oxygen Delivery Method Room Air 08/08/24 12:29 BMI result Body Mass Index 30.3 Const General: healthy appearing, no acute distress and well developed Nutritional Appearance: well nourished Orientation/consciousness: patient oriented x3 HEENT Head: Yes normal to inspection, Yes normocephalic and Yes atraumatic Face and sinus: Yes normal facial exam Neck Neck: Yes normal visual inspection Resp Effort & Inspection: normal respiratory effort, able to speak in complete sentences, no tracheal deviation and symmetric chest movement Auscultation: clear to auscultation bilaterally Cardio Jugular venous distension: no JVD Rate: regular rate Rhythm: regular rhythm Heart sounds: S1 normal heart sound present, S2 normal heart sound present, no gallops and no murmurs GI Inspection: Yes normal to inspection and No distended Palpation (GI): Soft to palpation, not firm, nontender and No hepatosplenomegaly present Auscultation: normal bowel sounds Neuro General: patient oriented x3 Gait exam (Neuro): Normal gait present Psych Appearance: grossly normal Mental Status: mental status grossly normal Speech and movement: Normal speech and movement present Affect: normal affect Attitude: cooperative Thought process: Normal thought process present Thought content: Normal thought content present Insight: Good insight present (Psych) Judgement: Good judgement present (Psych) Assessment & Plan Assessment & Plan (1) Transaminitis: Code(s): R74.01 - Elevation of levels of liver transaminase levels Category: Medical (2) Elevated transaminase measurement: Code(s): R74.01 - Elevation of levels of liver transaminase levels Plan: Fatty liver confirmed on abdominal ultrasound 12/16/2020. Does not appear a workup for source of findings was complete. BMI elevated at 30.3 however, without significant abdominal obesity. We will obtain a few screening labs to include lipids and A1c. We will discuss further workup at next visit. (3) Acid reflux: Code(s): K21.9 - Gastro-esophageal reflux disease without esophagitis Category: Medical Qualifiers: Esophagitis presence: esophagitis presence not specified Qualified Code(s): K21.9 - Gastro-esophageal reflux disease without esophagitis Plan: Intermittent symptoms, fairly controlled with omeprazole. We discussed obtaining EGD at time of colonoscopy screening, he would like to proceed with procedure. Education on GERD prevention: -Advised against heavy meals; encouraged small, frequent meals instead of large ones. -Instructed to remain upright for 2?3 hours after eating. -Advised to avoid late-night meals, spicy foods, caffeine, alcohol, known dietary triggers, and tight-fitting clothing. -Emphasis placed on gradual implementation of lifestyle changes to improve adherence and symptom control. (4) Colon cancer screening: Code(s): Z12.11 - Encounter for screening for malignant neoplasm of colon Category: Medical Plan: Due for index colonoscopy screening. Reviewed prep and procedure expectations. Prep Rx'd to preferred pharmacy. Plan Follow-up after EGD/colonoscopy are sooner as needed Time: I spent a total of 60 minutes on the date of encounter which includes: Preparing to see the patient (reviewed previous documentation, test results and medical history) Performing a medically appropriate exam and/or evaluation Ordering medications, tests, and procedures Documenting clinical information in the health record Orders: Orders IRON PROFILE Today Navya Mejía CNP R74.01 - Elevation of levels of liver transaminase levels Lipid Panel Today Navya Mejía CNP R74.01 - Elevation of levels of liver transaminase levels Hemoglobin A1c Today Navya Mejía CNP R74.01 - Elevation of levels of liver transaminase levels Medications: Changed From omeprazole 20 mg PO DAILY 90 days 90 caps 0RF To omeprazole 20 mg PO DAILY PRN acid reflux Estefania Moon MD From cetirizine (Zyrtec) 10 mg PO DAILY 90 days 90 tabs 0RF To cetirizine (Zyrtec) 10 mg PO DAILY PRN Estefania Moon MD Coding Level of Care Code New Pt New Pt Level 5 (70430) Patient Type New Diagnoses Transaminitis R74.01 Gastroesophageal reflux disease, unspecified whether esophagitis present K21.9 Esophagitis presence: esophagitis presence not specified Colon cancer screening Z12.11
[2024-08-08 12:29] VITALS: BP 144/80; PULSE 78; O2SAT 96; BMI 30.3
== END 2024-08-08 13:22 | disposition home or self-care (01) ==
LOC: HO.HGI 12:23
PROVIDERS: PCP Internal Medicine; Visit Provider Nurse Practitioner Family
DX: Z01.818 Encounter for other preprocedural examination (principal); Z12.11 Encounter for screening for malignant neoplasm of colon; R74.01 Elevation of levels of liver transaminase levels; K21.9 Gastro-esophageal reflux disease without esophagitis
CPT/HCPCS: 99024

== ENCOUNTER → 2024-08-08 12:22 | Outpatient (BNVA) | payer OTHER, SELFPAY | PROVIDERS: PCP Internal Medicine; Visit Provider Nurse Practitioner Family | DX: Z01.818 Encounter for other preprocedural examination (principal); K21.9 Gastro-esophageal reflux disease without esophagitis; R74.01 Elevation of levels of liver transaminase levels | CPT/HCPCS: 99212 ==

== ENCOUNTER → 2024-12-20 15:30 | Outpatient (BNVA) | payer OTHER, SELFPAY | PROVIDERS: PCP Internal Medicine | DX: I10 Essential (primary) hypertension (principal) | CPT/HCPCS: 99211 ==

== ENCOUNTER 2025-01-14 15:04 | Outpatient (AMB) | payer OTHER, SELFPAY ==
--- NOTE | 2025-01-14 15:07 | MHC.PC.OV ---
Vital Signs 01/14/25 15:08 Height 6 ft 2 in Weight 235 lb BMI 30.2 BP 130/80 Blood Pressure Location Rt brachial Position Sitting Pulse 81 Pulse Source Pulse Oximeter Pulse Oximetry (%) 99 Oxygen Delivery Method Room Air Intake Visit Reasons: shoulder pain [employer] Sales Representative Required: No Accompanied by: Self / Same As Patient Allergies aspirin Allergy (Unknown, Verified 01/14/25 15:08) anaphylaxis Medication List - Last Reconciled 01/14/25 by Estefania Moon MD atenolol 50 mg PO DAILY 90 days cetirizine (Zyrtec) 10 mg PO DAILY PRN fluticasone propionate 50 mcg/actuation (Allergy Relief (fluticasone)) 1 spray intranasal DAILY 30 days omeprazole 20 mg PO DAILY PRN sertraline 100 mg PO DAILY 90 days temazepam 15 mg PO BEDTIME PRN Tobacco use date assessed: 07/02/24 Dental Screening Dental Screen Date: 07/02/24 HPI shoulder pain HPI Details History of Present Illness The patient is a 49 year old male presenting with shoulder pain. And regular follow-up last time seen was 6 months ago, patient missed his follow-up appointment as he went to [place] Shoulder Pain: - Pain reportedly comes and goes, is not constant. - Described as manageable by the patient. - Patient notes exacerbation with excessive use or strain. - The patient's essential hypertension remains well managed with current medication, atenolol 50 mg, resulting in excellent blood pressure control. - The patient reports improvement in heartburn symptoms using omeprazole as needed, without continuous usage. 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 - continued to take temazepam has a sleep aid GERD is stable Allergies stable Anxiety stable Medications: - Zyrtec: Indication not explicitly noted. - Omeprazole: Used for acid-related issues (specific condition not mentioned). - Sertraline: Taken for anxiety. - Nasal spray: Indication not specified. - temazepam: Occasionally used for sleep disturbances. Social History: - Recent travel to [place] for vacation. - Upcoming travel plans to [place] for further evaluation and treatment. Plan - Continue current medications including Zyrtec, omeprazole, sertraline, and nasal spray. - For shoulder pain, advised to avoid strain to prevent exacerbation. - Routine blood tests discussed, to check liver and kidney function. - Ordered refills for medications including potential need for sleeping pills if necessary. - Discussed use of ear wax removal drops and avoiding hearing aid use temporarily. - follow-up in July patient already have physical exam Review of Systems - General: No fever no chills - Neurological: No headaches no dizziness - Ear nose throat: No sore throat no hearing difficulty no ear pain - Cardiovascular: No syncope, no chest pain, no palpitations - Gastrointestinal: No nausea vomiting or diarrhea - Endocrine: No polyuria polydipsia no heat intolerance - Genitourinary: No dysuria , no blood in urine Physical Exam General: No acute distress HEENT: No acute findings, both ears with excessive wax, vision poor Neck: Supple Respiratory system: Able to talk in full sentences, no audible wheeze, lungs are clear, no shortness of breath Cardiovascular: S1-S2 regular in rate and rhythm Gastrointestinal: No pain Extremities: Both shoulders with full range of motion [employer]: Alert awake oriented x3 motor intact Skin: Normal turgor [facility] Medical History Acid reflux Transaminitis Pigmentary retinal dystrophy Elevated ferritin LFT elevation Anxiety, generalized Difficulty sleeping Chronic GERD Hypertension, essential Surgical History H/O hand surgery H/O eye surgery No pertinent past surgical history Family History Mother Diabetes Heart abnormality Maternal Grandfather Diabetes Heart abnormality Social History Household Members: Spouse Housing: House Alcohol intake: current Alcohol intake frequency: a few times a month Alcohol type: wine Patient Tobacco Use Status: Never used Tobacco e-Cigarette/Vaping Use: Never Used Second Hand Smoke Exposure: No service: No Current occupational status: disabled Cognitive needs: No Hearing needs: No Vision needs: No Questionnaire Thrive Questionnaire Date Thrive assessed: 04/13/24 I am a: Patient What is your living situation today?: I have a steady place to live Within the past 12 months, did the food you bought not last and you didn't have the money to get more?: Never true Within the past 12 months, did you worry whether your food would run out before you got money to buy more?: Never true Do you have trouble paying for medicines?: No Do you have trouble getting transportation to medical appointments?: No Do you have trouble paying your heating and electricity bill?: I choose not to answer this question Do you have trouble taking care of your child, family member or friend?: I choose not to answer this question Do you have trouble with day-to-day activities such as bathing, preparing meals, shopping, managing finances, etc.?: I choose not to answer this question Are you currently unemployed and looking for a job?: No Are you interested in more education?: No Please select the resources that you would like help with: None Currently or been in a relationship where the following occur: No concerns reported THRIVE Score: 0 PRESLEY-7 AMB Questionnaire PRESLEY-7 Date PRESLEY - 7 assessed: 07/02/24 Source: Developed by Drs. Jake Ryan, Sharonda Villagomez, Chance Prasad and colleagues, with an educational neel from [employer]. Physical exam (Primary Care) Vital Signs: Last Vital Signs Pulse 81 01/14/25 15:08 BP 130/80 01/14/25 15:08 Pulse Ox 99 01/14/25 15:08 Oxygen Delivery Method Room Air 01/14/25 15:08 BMI result Body Mass Index 30.2 Tobacco/Smoking Status: Tobacco use Status Tobacco use date assessed 07/02/24 01/14/25 15:12 Patient Tobacco Use Status Never used Tobacco 01/14/25 15:12 e-Cigarette/Vaping Use Never Used 01/14/25 15:12 Thrive Assessment: Date of Thrive Assessment Date Thrive assessed 04/13/24 01/14/25 15:12 Currently or been in a relationship where the following occur: No concerns reported Coding Level of Care Code Est Pt Level 4 (67941) Complex EM visit Add On G2211 Diagnoses Hypertension, essential I10 Mild episode of recurrent major depressive disorder F33.0 Active/Remission status: currently active Major depression episode severity: mild Anxiety, generalized F41.1 Thrombocytopenia D69.6 Chronic GERD K21.9 Difficulty sleeping G47.9 Elevated ferritin R79.89 Assessment & Plan Assessment & Plan (1) Hypertension, essential: Code(s): I10 - Essential (primary) hypertension Category: Medical (2) Major depression, recurrent: Code(s): F33.9 - Major depressive disorder, recurrent, unspecified Category: Medical Qualifiers: Active/Remission status: currently active Major depression episode severity: mild Qualified Code(s): F33.0 - Major depressive disorder, recurrent, mild (3) Anxiety, generalized: Code(s): F41.1 - Generalized anxiety disorder Category: Medical (4) Thrombocytopenia: Code(s): D69.6 - Thrombocytopenia, unspecified Category: Medical (5) Chronic GERD: Code(s): K21.9 - Gastro-esophageal reflux disease without esophagitis Category: Medical (6) Difficulty sleeping: Code(s): G47.9 - Sleep disorder, unspecified Category: Medical (7) Elevated ferritin: Code(s): R79.89 - Other specified abnormal findings of blood chemistry Category: Medical Plan History of Present Illness The patient is a 49 year old male presenting with shoulder pain. And regular follow-up last time seen was 6 months ago, patient missed his follow-up appointment as he went to [place] Shoulder Pain: - Pain reportedly comes and goes, is not constant. - Described as manageable by the patient. - Patient notes exacerbation with excessive use or strain. - The patient's essential hypertension remains well managed with current medication, atenolol 50 mg, resulting in excellent blood pressure control. - The patient reports improvement in heartburn symptoms using omeprazole as needed, without continuous usage. 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 - continued to take temazepam has a sleep aid GERD is stable Allergies stable Anxiety stable Medications: - Zyrtec: Indication not explicitly noted. - Omeprazole: Used for acid-related issues (specific condition not mentioned). - Sertraline: Taken for anxiety. - Nasal spray: Indication not specified. - temazepam: Occasionally used for sleep disturbances. Social History: - Recent travel to [place] for vacation. - Upcoming travel plans to [place] for further evaluation and treatment. Plan - Continue current medications including Zyrtec, omeprazole, sertraline, and nasal spray. - For shoulder pain, advised to avoid strain to prevent exacerbation. - Routine blood tests discussed, to check liver and kidney function. - Ordered refills for medications including potential need for sleeping pills if necessary. - Discussed use of ear wax removal drops and avoiding hearing aid use temporarily. - follow-up in July patient already have physical exam Orders: Orders Complete Blood Count Auto Diff 01/14/25 D69.6 - Thrombocytopenia, unspecified, F33.0 - Major depressive disorder, recurrent, mild, F41.1 - Generalized anxiety disorder, G47.9 - Sleep disorder, unspecified, I10 - Essential (primary) hypertension, K21.9 - Gastro-esophageal reflux disease without esophagitis, R79.89 - Other specified abnormal findings of blood chemistry Comprehensive [place]. Panel Fast 01/14/25 D69.6 - Thrombocytopenia, unspecified, F33.0 - Major depressive disorder, recurrent, mild, F41.1 - Generalized anxiety disorder, G47.9 - Sleep disorder, unspecified, I10 - Essential (primary) hypertension, K21.9 - Gastro-esophageal reflux disease without esophagitis, R79.89 - Other specified abnormal findings of blood chemistry Lipid Panel 01/14/25 D69.6 - Thrombocytopenia, unspecified, F33.0 - Major depressive disorder, recurrent, mild, F41.1 - Generalized anxiety disorder, G47.9 - Sleep disorder, unspecified, I10 - Essential (primary) hypertension, K21.9 - Gastro-esophageal reflux disease without esophagitis, R79.89 - Other specified abnormal findings of blood chemistry Ferritin 01/14/25 R79.89 - Other specified abnormal findings of blood chemistry Medications: New temazepam 15 mg PO BEDTIME PRN 30 caps 1RF sleep Refilled cetirizine (Zyrtec) 10 mg PO DAILY PRN 90 tabs 0RF allergy symptoms atenolol 50 mg PO DAILY 90 tabs 1RF 90 days fluticasone propionate 50 mcg/actuation (Allergy Relief (fluticasone)) administer into each nostril 1 spray intranasal DAILY 1 mL 2RF 30 days R09.81 - Nasal congestion omeprazole 20 mg PO DAILY PRN 90 caps 0RF acid reflux sertraline 100 mg PO DAILY 90 tabs 0RF 90 days
[2025-01-14 15:08] VITALS: BP 130/80; PULSE 81; O2SAT 99; BMI 30.2
--- OUTSIDE RECORDS SUMMARY | 2025-01-14 18:20 | XMS_ITS | Clinical Summary ---
Author Organization [facility] Address [address] [place] [id number] Phone Care Team Providers Care Solution Designer Name Role Phone Estefania Moon MD Primary Care Provider [phone] Allergies Active Allergy Reactions Criticality Noted Date Comments Aspirin Rash Low 03/16/2021 Medications atenolol (TENORMIN) 25 MG tablet Take 25 mg by mouth daily. Active sertraline (ZOLOFT) 25 MG tablet Take 100 mg by mouth daily. Active temazepam (RESTORIL) 15 mg capsule 01/07/2021 Active multivitamins capsule Take 1 capsule by mouth daily. Active VITAMIN A ORAL Take by mouth. Active thiamine (VITAMIN B-1) 100 MG tablet Take 100 mg by mouth daily. Active cetirizine (ZYRTEC) 10 MG tablet Take 1 tablet by mouth every morning. 02/21/2023 Active omeprazole (PRILOSEC) 20 MG capsule Take 1 capsule by mouth every morning. 02/25/2023 Active sertraline (ZOLOFT) 100 MG tablet Take 1 tablet by mouth every morning. 02/25/2023 Active Family History Medical History Relation Comments Diabetes Mother Glaucoma Neg Hx Relation Status Comments Mother Social History Tobacco Use Types Packs/Day Years Used Date Smoking Tobacco: Never Smokeless Tobacco: Never Tobacco Cessation:Counseling Given: Not Answered Alcohol Use Standard Drinks/Week Comments Not Asked 0 (1 standard drink = 0.6 oz pur e alcohol) Socially Education Answer Date Recorded Are you interested in more education? Not on kamla e 08/06/2022 Are you concerned about learning? Not on file 08/06/2022 No 08/06/2022 No 08/06/2022 Digital Access Answer Date Recorded No 09/04/2022 No 09/04/2022 Reliable internet access at home? Not on file 09/04/2022 Device with a working camera? Not on file Sex and Gender Information Value Date Recorded Sex Assigned at Not on file Legal Sex Male 2:38 PM EDT Gender Identity Not on file Sexual Orientation Not on file Occupation Industry Job Start Date Job End Date Retired/ disabled Not on file Not on file Not on kamla e Plan of Treatment Upcoming Encounters Date Type Department Care Team ([facility] st Contact Info) Description 04/25/2025 10:00 AM EST Office Visit [facility] [address] [facility] [address] [place] [address] Eduardo Elliott MD [address] [address] [email or web address] Health Maintenance Due Date Last Done Comments Adult Td,Tdap Booster 1977 LIPID PANEL 1977 DEPRESSION SCREENING 1989 HEPATITIS C SCREENING 10/15/1995 HIV ONE-TIME SCREENING (18-6 5 YEARS) 10/15/1995 COLOGUARD 2022 COLONOSCOPY 2022 COLORECTAL CANCER SCREENING 2022 FIT TEST 2022 FOBT 2022 SIGMOIDOSCOPY 2022 VIRTUAL COLONOSCOPY 2022 INFLUENZA VACCINE (#1) 2024 COVID-19 VACCINE (3 2024-2 6 season) 2024 07/26/2020, 07/04/2020 SMOKING STATUS SCREENING (On ce After 26 Yrs) Completed 04/25/2023 HEPATITIS A VACCINES Aged Out No long er eligible based on patient's age to complete this topic HIB VACCINES Aged Out No longer eligi ble based on patient's age to complete this topic MENINGOCOCCAL VACCINES (ACWY) Aged Out No longer eligible based on patient's age to complete this topic MENINGOCOCCAL VACCINES (B) Aged Out N o longer eligible based on patient's age to complete this topic PNEUMOCOCCAL VACCINES (0-49 years) Aged Out No longer eligible b ased on patient's age to complete this topic Medical Devices Not on file Insurance [facility] MEDICARE REPLACEMENT [facility] RE[facility]EMENT [facility]PLACEMENT [facility] REPLACEMENT [place] [id number] [facility] REPLACEMENT [facility] REPLACEMENT [facility] RE[facility]EMENT [place] [id number] [facility]ICARE REPLACEMENT [facility] MEDIC[facility] REPLACEMENT [place] [id number] Care Teams Solution Designer Relationship Specialty Start Date End Date Estefania Moon MD [facility] [place] [address] PCP - General Internal Medicine 12/02/20 Additional Source Comments The information contained in this document represents components of the legal health record. It is not the complete legal health record.[facility]
== END 2025-01-14 15:28 | disposition home or self-care (01) ==
LOC: HO.HMCC 15:05
PROVIDERS: PCP Internal Medicine; Visit Provider Internal Medicine
DX: I10 Essential (primary) hypertension (principal); F33.0 Major depressive disorder, recurrent, mild; F41.1 Generalized anxiety disorder; D69.6 Thrombocytopenia, unspecified; K21.9 Gastro-esophageal reflux disease without esophagitis; G47.9 Sleep disorder, unspecified; R79.89 Other specified abnormal findings of blood chemistry

== ENCOUNTER → 2025-01-14 15:04 | Outpatient (BNVA) | payer OTHER, SELFPAY | PROVIDERS: PCP Internal Medicine; Visit Provider Internal Medicine | DX: I10 Essential (primary) hypertension (principal); F33.0 Major depressive disorder, recurrent, mild; F41.1 Generalized anxiety disorder; D69.6 Thrombocytopenia, unspecified; K21.9 Gastro-esophageal reflux disease without esophagitis; R79.89 Other specified abnormal findings of blood chemistry | CPT/HCPCS: 99212 ==

== ENCOUNTER 2025-03-05 11:25 | Outpatient (REF) | payer OTHER, SELFPAY ==
[2025-03-05 13:58] LABS: MANUAL DIFF FLAG NO
[2025-03-05 14:06] LABS: Hematocrit 45.6 % (42.0-52.0); Hemoglobin 15.3 g/dl (14.0-18.0); Imm Gran Abs Auto 0.01 X10*3/uL (0.00-0.03); Imm Gran Pct Auto 0.2 % (0.0-0.4); Lymphocytes Absolute Auto 3.0 X10*3/uL (1.2-4.9); Mean Corpuscular HGB Conc 33.6 g/dl (31.0-36.0); Mean Corpuscular Hemoglobin 28.7 pg (27.0-33.0); Mean Corpuscular Volume 85.4 fL (80.0-98.0); NRBC Abs Auto 0.000 X10*3/uL (0.0-0.012); NRBC Pct Auto 0.0 /100WBC (0.0-0.2); Platelet Count 177 X10*3/uL (160-400); Red Blood Count 5.34 X10*6/uL (4.60-5.80); White Blood Count 6.4 X10*3/uL (4.8-10.8)
[2025-03-05 15:14] LABS: Alanine Aminotransferase 33 U/L (0-40); Albumin Level 4.3 g/dL (3.5-5.0); Alkaline Phosphatase 69 U/L (39-117); Anion Gap 10 (12-20); Aspartate Amino Transferase 41 U/L (5-37); Blood Urea Nitrogen 14 mg/dL (9-16); Calcium 9.3 mg/dL (8.4-10.2); Carbon Dioxide 28 mmol/L (22-29); Chloride 105 mmol/L (96-108); Cholesterol 204 mg/dL (<200); Estimated Glomerular Filt Rate > 60; HDL Cholesterol 34 mg/dL (>40); Potassium 3.9 mmol/L (3.3-5.1); Sodium 139 mmol/L (135-145); Total Protein 7.3 g/dL (6.5-8.0); Triglycerides 202 mg/dL (<150)
[2025-03-05 15:37] LABS: Ferritin 261 ng/mL (20-250)
== END 2025-03-05 11:26 | disposition home or self-care (01) ==
LOC: HO.HMGCLDS 11:25
PROVIDERS: PCP Internal Medicine; Visit Provider Internal Medicine
DX: I10 Essential (primary) hypertension (principal); F33.0 Major depressive disorder, recurrent, mild; F41.1 Generalized anxiety disorder; D69.6 Thrombocytopenia, unspecified; K21.9 Gastro-esophageal reflux disease without esophagitis; G47.9 Sleep disorder, unspecified; R79.89 Other specified abnormal findings of blood chemistry
CPT/HCPCS: 36415; 80053; 80061; 82728; 85025